=== PATIENT | male | born 1940 | race Asian ===

== ENCOUNTER 2016-03-17 11:48 | Inpatient (IN) | payer MEDICARE, OTHER ==
[~2016-03-17] VITALS: Ht 162.6 cm; Wt 103.1 kg
[~2016-03-17 11:48] MED LIST: ALLO100T PO; AMLO-512 PO; ASA3 PO; ATOR40TA28 PO; CHOL2000 PO; DOXA2TAB2 PO; FINA5TAB41 PO; FISH1CAP10 PO; INSLAN SQ; INSNOV SQ; ISOS60TA4 PO; METO50 PO; MULT1TAB70 PO; WARF2.5 PO
[2016-03-17 12:47] LABS: GLUCOSE,POINT OF CARE 147 MG/DL (70-110)
[2016-03-17] MEDS ORDERED: PANT40TA25 PO (12:48)
[2016-03-17] MEDS ORDERED: APIX2.5T PO (12:52)
[2016-03-17] MEDS ORDERED: COLC0.6T69 PO (12:52)
[2016-03-17 13:41] LABS: HEMATOCRIT 36.3 % (41-53); HEMOGLOBIN 11.9 g/dL (13.5-17.5); MEAN CORPUSCULAR HEMOGLOBIN 29.5 pg (26.0-34.0); MEAN CORPUSCULAR HGB CONC 32.9 G/dL (31.0-37.0); MEAN CORPUSCULAR VOLUME 89 fL (80-100); RED BLOOD CELL COUNT(AUTO) 4.05 MIL/uL (4.50-5.90); RED CELL DISTRIBUTION WIDTH 16.1 % (11.5-14.5); WHITE BLOOD COUNT (AUTO) 7.1 K/uL (4.5-11.0)
[2016-03-17 13:42] LABS: BASOPHILS % (AUTO) 0.8 % (0.0-2.0); EOSINOPHILS % (AUTO) 10.8 % (1.0-6.0); LYMPHOCYTES # (AUTO) 1.6 K/uL (1.0-4.8); LYMPHOCYTES % (AUTO) 22.1 % (22.0-44.0); MONOCYTES # (AUTO) 0.9 K/uL (0.1-1.0); MONOCYTES % (AUTO) 13.4 % (2.0-9.0); NEUTROPHILS # (AUTO) 3.8 K/uL (1.8-7.7); NEUTROPHILS % (AUTO) 52.9 % (40.0-70.0); PLATELET COUNT (AUTO) 153 K/uL (150-450)
[2016-03-17 13:44] LABS: CALCIUM, TOTAL 8.2 mg/dL (8.8-10.5); CREATININE 4.42 mg/dL (0.60-1.30); POTASSIUM 3.9 mmol/L (3.5-5.1)
[2016-03-17 13:58] LABS: ALBUMIN 2.8 g/dL (3.4-5.0); BILIRUBIN,TOTAL 0.5 mg/dL (0.1-1.0); MAGNESIUM 1.5 mg/dL (1.80-2.40); THYROID STIMULATING HORMONE 1.51 uIU/mL (0.36-3.74); TOTAL PROTEIN, SERUM 6.8 g/dL (6.4-8.2)
[2016-03-17] MEDS ORDERED: ONDANSETRON HCL 4 MG/2 ML VIAL IVP PRN (15:15)
[2016-03-17] MEDS ORDERED: 0.9% SODIUM CHLORIDE 10 ML SYRINGE IVP PRN (15:15)
[2016-03-17] MEDS ORDERED: ACETAMINOPHEN 325 MG TABLET PO PRN ×2 (15:15→21:30)
[2016-03-17] MEDS ORDERED: AMLO2.5T PO (15:21)
[2016-03-17] MEDS ORDERED: MORPHINE SULFATE 2 MG/ML SYRINGE IVP ONE (16:45)
[2016-03-17 17:47] VITALS: BP 140/65
[2016-03-17] MEDS ORDERED: INFLUENZA VIRUS VACCINE QVS 2016-17 (3YR+)/PF 60 MCG/0.5 ML SYRINGE IM ONE (18:45)
[2016-03-17 19:15] VITALS: BP 131/62
[2016-03-17] MEDS: COLCHICINE 0.6 MG TABLET PO SCH (20:09)
[2016-03-17] MEDS: TraMADol HCL 50 MG TABLET PO PRN (20:09)
[2016-03-17] MEDS: APIXABAN 2.5 MG TABLET PO SCH (20:09)
[2016-03-17] MEDS ORDERED: MAGNESIUM OXIDE 400 MG TABLET PO ONE (20:45)
[2016-03-17] MEDS ORDERED: METOPROLOL TARTRATE 50 MG TABLET PO SCH (21:00)
[2016-03-17] MEDS ORDERED: ATORVASTATIN CALCIUM 40 MG TABLET PO SCH (21:00)
[2016-03-17] MEDS: INSULIN GLARGINE,HUM.REC.ANLOG 100 UNITS/ML SQ SCH (21:00)
[2016-03-17] MEDS ORDERED: DEXTROSE 50%-WATER 25 GM/50 ML SYRINGE IVP PRN (21:30)
[2016-03-17] MEDS ORDERED: ALBUTEROL SULFATE 2.5 MG/0.5 ML NEB SOLUTION NEB PRN (21:30)
[2016-03-17] MEDS ORDERED: BISACODYL 10 MG RECTAL RECTAL SUPPOSITORY PR PRN (21:30)
[2016-03-17 21:33] VITALS: BP 133/71
[2016-03-17] MEDS: OxyCODONE HCL/ACETAMINOPHEN 5-325 MG TABLET PO PRN (21:34)
[2016-03-17] MEDS: INSULIN ASPART 100 UNITS/ML SQ PRN (21:38)
[2016-03-17 22:57] VITALS: BP 127/54
[2016-03-18] VITALS (7 sets, daily range): BP systolic 123–153; BP diastolic 55–75
[2016-03-18] MEDS ORDERED: MAGNESIUM SULFATE 2 GM in DEXTROSE 5%-WATER 50 ML IV ONE (00:30)
[2016-03-18] MEDS ORDERED: SODIUM CHLORIDE 0.9% 100 ML ONE (00:52)
[2016-03-18] MEDS: PANTOPRAZOLE SODIUM 40 MG DR TABLET PO SCH (06:19)
[2016-03-18] MEDS: INSULIN ASPART 100 UNITS/ML SQ PRN ×4 (06:21→21:08)
[2016-03-18 07:25] LABS: CALCIUM, TOTAL 8.2 mg/dL (8.8-10.5); CREATININE 4.93 mg/dL (0.60-1.30); MAGNESIUM 2.2 mg/dL (1.80-2.40); PHOSPHORUS 4.9 mg/dL (2.5-4.9); POTASSIUM 4.3 mmol/L (3.5-5.1)
[2016-03-18 07:51] LABS: GLUCOSE COMMENT 1 Received Meds; GLUCOSE,POINT OF CARE 180 MG/DL (70-110)
[2016-03-18 07:51] LABS: GLUCOSE COMMENT 1 Received Meds; GLUCOSE,POINT OF CARE 168 MG/DL (70-110)
[2016-03-18] MEDS ORDERED: PANTOPRAZOLE SODIUM 40 MG DR TABLET PO SCH (09:00)
[2016-03-18] MEDS ORDERED: APIXABAN 2.5 MG TABLET PO SCH (09:00)
[2016-03-18 15:01] LABS: GLUCOSE,POINT OF CARE 231 MG/DL (70-110)
[2016-03-18] MEDS: OxyCODONE HCL/ACETAMINOPHEN 5-325 MG TABLET PO PRN (15:21)
[2016-03-18] MEDS: ASPIRIN 325 MG TABLET PO SCH (16:35)
[2016-03-18] MEDS: DOXAZOSIN MESYLATE 2 MG TABLET PO SCH (16:36)
[2016-03-18] MEDS: COLCHICINE 0.6 MG TABLET PO SCH ×2 (16:37→20:58)
[2016-03-18] MEDS: DOCUSATE SODIUM 100 MG CAPSULE PO SCH ×2 (16:37→20:58)
[2016-03-18] MEDS: FISH OIL/OMEGA-3 FATTY ACIDS 500 MG CAPSULE PO SCH (16:38)
[2016-03-18] MEDS: APIXABAN 2.5 MG TABLET PO SCH ×2 (16:38→20:58)
[2016-03-18] MEDS: AmLODIPine BESYLATE 2.5 MG TABLET PO SCH (16:39)
[2016-03-18] MEDS: ISOSORBIDE MONONITRATE 60 MG ER TABLET PO SCH (16:39)
[2016-03-18] MEDS: MULTIVITAMINS, THERAPEUTIC TABLET PO SCH (16:40)
[2016-03-18] MEDS: CHOLECALCIFEROL (VIT D3) 1,000 UNITS TABLET PO SCH (16:40)
[2016-03-18] MEDS: FINASTERIDE 5 MG TABLET PO SCH (16:40)
[2016-03-18] MEDS: HEPARIN SODIUM,PORCINE 5,000 UNITS/ML VIAL SQ SCH ×2 (16:41→20:59)
[2016-03-18] MEDS: METOPROLOL TARTRATE 25 MG TABLET PO SCH ×2 (16:44→20:58)
[2016-03-18] MEDS ORDERED: PREG50 PO (17:20)
[2016-03-18 20:16] LABS: GLUCOSE COMMENT 1 Received Meds; GLUCOSE,POINT OF CARE 174 MG/DL (70-110)
[2016-03-18] MEDS: ATORVASTATIN CALCIUM 20 MG TABLET PO SCH (20:58)
[2016-03-18] MEDS: INSULIN GLARGINE,HUM.REC.ANLOG 100 UNITS/ML SQ SCH (21:15)
[2016-03-19 01:26] LABS: GLUCOSE COMMENT 1 Received Meds; GLUCOSE,POINT OF CARE 215 MG/DL (70-110)
[2016-03-19 02:15] VITALS: BP 149/69
[2016-03-19] MEDS: OxyCODONE HCL/ACETAMINOPHEN 5-325 MG TABLET PO PRN ×4 (02:19→20:56)
[2016-03-19 04:37] VITALS: BP 123/52
[2016-03-19] MEDS: INSULIN ASPART 100 UNITS/ML SQ PRN ×3 (06:31→21:07)
[2016-03-19] MEDS: PANTOPRAZOLE SODIUM 40 MG DR TABLET PO SCH (06:33)
[2016-03-19 07:02] LABS: GLUCOSE COMMENT 1 Received Meds; GLUCOSE,POINT OF CARE 194 MG/DL (70-110)
[2016-03-19 07:35] LABS: BASOPHILS % (AUTO) 0.7 % (0.0-2.0); EOSINOPHILS % (AUTO) 7.2 % (1.0-6.0); HEMOGLOBIN 11.2 g/dL (13.5-17.5); LYMPHOCYTES # (AUTO) 1.1 K/uL (1.0-4.8); LYMPHOCYTES % (AUTO) 17.4 % (22.0-44.0); MEAN CORPUSCULAR HEMOGLOBIN 29.9 pg (26.0-34.0); MEAN CORPUSCULAR HGB CONC 32.9 G/dL (31.0-37.0); MEAN CORPUSCULAR VOLUME 91 fL (80-100); MONOCYTES # (AUTO) 0.7 K/uL (0.1-1.0); MONOCYTES % (AUTO) 11.8 % (2.0-9.0); NEUTROPHILS # (AUTO) 3.9 K/uL (1.8-7.7); NEUTROPHILS % (AUTO) 62.9 % (40.0-70.0); PLATELET COUNT (AUTO) 125 K/uL (150-450); RED BLOOD CELL COUNT(AUTO) 3.73 MIL/uL (4.50-5.90); RED CELL DISTRIBUTION WIDTH 15.8 % (11.5-14.5); WHITE BLOOD COUNT (AUTO) 6.3 K/uL (4.5-11.0)
[2016-03-19 07:58] LABS: CALCIUM, TOTAL 8.7 mg/dL (8.8-10.5); CREATININE 4.92 mg/dL (0.60-1.30); MAGNESIUM 1.8 mg/dL (1.80-2.40); PHOSPHORUS 4.5 mg/dL (2.5-4.9); POTASSIUM 4.9 mmol/L (3.5-5.1)
[2016-03-19 08:04] VITALS: BP 142/54
[2016-03-19] MEDS: ASPIRIN 325 MG TABLET PO SCH (08:06)
[2016-03-19] MEDS: HEPARIN SODIUM,PORCINE 5,000 UNITS/ML VIAL SQ SCH ×2 (08:06→20:57)
[2016-03-19] MEDS: FINASTERIDE 5 MG TABLET PO SCH (08:06)
[2016-03-19] MEDS: CHOLECALCIFEROL (VIT D3) 1,000 UNITS TABLET PO SCH (08:06)
[2016-03-19] MEDS: DOCUSATE SODIUM 100 MG CAPSULE PO SCH ×2 (08:06→20:56)
[2016-03-19] MEDS: METOPROLOL TARTRATE 25 MG TABLET PO SCH ×2 (08:06→20:56)
[2016-03-19] MEDS: ISOSORBIDE MONONITRATE 60 MG ER TABLET PO SCH (08:17)
[2016-03-19] MEDS: APIXABAN 2.5 MG TABLET PO SCH ×2 (08:17→20:56)
[2016-03-19] MEDS: AmLODIPine BESYLATE 2.5 MG TABLET PO SCH (08:17)
[2016-03-19] MEDS: FISH OIL/OMEGA-3 FATTY ACIDS 500 MG CAPSULE PO SCH (08:17)
[2016-03-19] MEDS: COLCHICINE 0.6 MG TABLET PO SCH ×2 (08:17→20:55)
[2016-03-19] MEDS: DOXAZOSIN MESYLATE 2 MG TABLET PO SCH (08:18)
[2016-03-19] MEDS: MULTIVITAMINS, THERAPEUTIC TABLET PO SCH (08:32)
[2016-03-19 11:28] VITALS: BP 123/69
[2016-03-19 15:37] VITALS: BP 107/55
[2016-03-19 18:01] LABS: GLUCOSE COMMENT 1 Received Meds; GLUCOSE,POINT OF CARE 186 MG/DL (70-110)
[2016-03-19 18:41] LABS: GLUCOSE COMMENT 1 Received Meds; GLUCOSE,POINT OF CARE 162 MG/DL (70-110)
[2016-03-19 19:53] VITALS: BP 126/56
[2016-03-19] MEDS: ATORVASTATIN CALCIUM 20 MG TABLET PO SCH (20:56)
[2016-03-19] MEDS: INSULIN GLARGINE,HUM.REC.ANLOG 100 UNITS/ML SQ SCH (21:00)
[2016-03-20] MEDS: OxyCODONE HCL/ACETAMINOPHEN 5-325 MG TABLET PO PRN ×3 (00:07→20:06)
[2016-03-20] MEDS ORDERED: 0.9% SODIUM CHLORIDE 5 ML NEB SOLUTION NEB ONE (00:28)
[2016-03-20 03:45] VITALS: BP_SYST 108; BP_SYST 141; BP_DIAS 64; BP_DIAS 68
[2016-03-20] MEDS: INSULIN ASPART 100 UNITS/ML SQ PRN ×3 (05:25→21:10)
[2016-03-20] MEDS: PANTOPRAZOLE SODIUM 40 MG DR TABLET PO SCH (05:26)
[2016-03-20 06:16] LABS: GLUCOSE COMMENT 1 Received Meds; GLUCOSE,POINT OF CARE 154 MG/DL (70-110)
[2016-03-20 06:28] LABS: BASOPHILS # (AUTO) 0.08 K/uL (0.00-0.20); BASOPHILS % (AUTO) 1.3 % (0.0-2.0); EOSINOPHILS # (AUTO) 0.44 K/uL (0.00-0.70); EOSINOPHILS % (AUTO) 6.96 % (1.0-6.0); HEMOGLOBIN 12.4 g/dL (13.5-17.5); LYMPHOCYTES % (AUTO) 16.1 % (22.0-44.0); MEAN CORPUSCULAR HEMOGLOBIN 29.5 pg (26.0-34.0); MEAN CORPUSCULAR HGB CONC 32.8 G/dL (31.0-37.0); MEAN CORPUSCULAR VOLUME 90 fL (80-100); MONOCYTES # (AUTO) 0.8 K/uL (0.1-1.0); MONOCYTES % (AUTO) 13.1 % (2.0-9.0); NEUTROPHILS # (AUTO) 3.9 K/uL (1.8-7.7); NEUTROPHILS % (AUTO) 62.5 % (40.0-70.0); PLATELET COUNT (AUTO) 127 K/uL (150-450); RED BLOOD CELL COUNT(AUTO) 4.22 MIL/uL (4.50-5.90); RED CELL DISTRIBUTION WIDTH 15.8 % (11.5-14.5); WHITE BLOOD COUNT (AUTO) 6.3 K/uL (4.5-11.0)
[2016-03-20 06:54] LABS: CALCIUM, TOTAL 8.5 mg/dL (8.8-10.5); CREATININE 5.8 mg/dL (0.60-1.30); MAGNESIUM 1.8 mg/dL (1.80-2.40); PHOSPHORUS 4.9 mg/dL (2.5-4.9)
[2016-03-20 07:54] VITALS: BP 146/73
[2016-03-20] MEDS: DOCUSATE SODIUM 100 MG CAPSULE PO SCH ×2 (09:00→20:04)
[2016-03-20 11:36] VITALS: BP 141/74
[2016-03-20] MEDS: APIXABAN 2.5 MG TABLET PO SCH ×2 (13:08→20:04)
[2016-03-20] MEDS: ISOSORBIDE MONONITRATE 60 MG ER TABLET PO SCH (13:08)
[2016-03-20] MEDS: METOPROLOL TARTRATE 25 MG TABLET PO SCH ×2 (13:08→20:04)
[2016-03-20] MEDS: MULTIVITAMINS, THERAPEUTIC TABLET PO SCH (13:08)
[2016-03-20] MEDS: GABAPENTIN 100 MG CAPSULE PO SCH ×2 (13:08→20:05)
[2016-03-20] MEDS: ASPIRIN 325 MG TABLET PO SCH (13:08)
[2016-03-20] MEDS: HEPARIN SODIUM,PORCINE 5,000 UNITS/ML VIAL SQ SCH ×2 (13:09→20:05)
[2016-03-20] MEDS: AmLODIPine BESYLATE 2.5 MG TABLET PO SCH (13:09)
[2016-03-20] MEDS: FINASTERIDE 5 MG TABLET PO SCH (13:09)
[2016-03-20] MEDS: FISH OIL/OMEGA-3 FATTY ACIDS 500 MG CAPSULE PO SCH (13:09)
[2016-03-20] MEDS: DOXAZOSIN MESYLATE 2 MG TABLET PO SCH (13:09)
[2016-03-20] MEDS: CHOLECALCIFEROL (VIT D3) 1,000 UNITS TABLET PO SCH (13:09)
[2016-03-20 13:36] LABS: GLUCOSE,POINT OF CARE 176 MG/DL (70-110)
[2016-03-20 15:46] VITALS: BP 145/72
[2016-03-20 19:44] VITALS: BP 138/60
[2016-03-20] MEDS: ATORVASTATIN CALCIUM 20 MG TABLET PO SCH (20:04)
[2016-03-20 20:11] LABS: GLUCOSE COMMENT 1 Received Meds; GLUCOSE,POINT OF CARE 158 MG/DL (70-110)
[2016-03-20] MEDS: INSULIN GLARGINE,HUM.REC.ANLOG 100 UNITS/ML SQ SCH (21:09)
[2016-03-20 21:31] LABS: GLUCOSE COMMENT 1 Received Meds; GLUCOSE,POINT OF CARE 163 MG/DL (70-110)
[2016-03-20 23:10] VITALS: BP 132/66
[2016-03-21 03:17] VITALS: BP 155/69
[2016-03-21] MEDS: OxyCODONE HCL/ACETAMINOPHEN 5-325 MG TABLET PO PRN ×3 (03:17→23:25)
[2016-03-21 05:40] LABS: GLUCOSE COMMENT 1 Received Meds; GLUCOSE,POINT OF CARE 205 MG/DL (70-110)
[2016-03-21 07:09] VITALS: BP 144/60
[2016-03-21] MEDS: AmLODIPine BESYLATE 2.5 MG TABLET PO SCH (09:00)
[2016-03-21] MEDS: HEPARIN SODIUM,PORCINE 5,000 UNITS/ML VIAL SQ SCH ×2 (09:00→20:59)
[2016-03-21] MEDS: DOCUSATE SODIUM 100 MG CAPSULE PO SCH ×2 (09:00→20:59)
[2016-03-21] MEDS: DOXAZOSIN MESYLATE 2 MG TABLET PO SCH (09:00)
[2016-03-21] MEDS: METOPROLOL TARTRATE 25 MG TABLET PO SCH ×2 (09:00→20:59)
[2016-03-21] MEDS: APIXABAN 2.5 MG TABLET PO SCH ×2 (09:00→21:00)
[2016-03-21 09:41] LABS: GLUCOSE COMMENT 1 Received Meds; GLUCOSE,POINT OF CARE 160 MG/DL (70-110)
[2016-03-21 11:57] LABS: GLUCOSE,POINT OF CARE 173 MG/DL (70-110)
[2016-03-21] MEDS ORDERED: IOHEXOL 180 MG/ML 20 ML VIAL ONE (12:41)
[2016-03-21] MEDS ORDERED: LIDOCAINE HCL/PF 1% 30 ML VIAL ONE (12:43)
[2016-03-21 13:53] VITALS: BP 157/75
[2016-03-21] MEDS: FINASTERIDE 5 MG TABLET PO SCH (14:24)
[2016-03-21] MEDS: CHOLECALCIFEROL (VIT D3) 1,000 UNITS TABLET PO SCH (14:24)
[2016-03-21] MEDS: FISH OIL/OMEGA-3 FATTY ACIDS 500 MG CAPSULE PO SCH (14:24)
[2016-03-21] MEDS: MULTIVITAMINS, THERAPEUTIC TABLET PO SCH (14:24)
[2016-03-21] MEDS: ASPIRIN 325 MG TABLET PO SCH (14:24)
[2016-03-21] MEDS: PANTOPRAZOLE SODIUM 40 MG DR TABLET PO SCH (14:25)
[2016-03-21] MEDS: ISOSORBIDE MONONITRATE 60 MG ER TABLET PO SCH (14:25)
[2016-03-21] MEDS ORDERED: SODIUM CHLORIDE 0.9% 2,000 ML IV ONE (14:34)
[2016-03-21 17:08] LABS: CALCIUM, TOTAL 8.5 mg/dL (8.8-10.5); CREATININE 4.09 mg/dL (0.60-1.30); POTASSIUM 4.7 mmol/L (3.5-5.1)
[2016-03-21] MEDS ORDERED: ALBUMIN HUMAN 25%-12.5GM/50ML IV BOTTLE IV PRN (20:30)
[2016-03-21] MEDS ORDERED: MANNITOL 25%-12.5 GM/50 ML VIAL IVP PRN (20:30)
[2016-03-21 20:50] VITALS: BP 133/80
[2016-03-21] MEDS: GABAPENTIN 100 MG CAPSULE PO SCH (21:00)
[2016-03-21] MEDS: ATORVASTATIN CALCIUM 20 MG TABLET PO SCH (21:00)
[2016-03-21] MEDS: INSULIN GLARGINE,HUM.REC.ANLOG 100 UNITS/ML SQ SCH (21:14)
[2016-03-21] MEDS: INSULIN ASPART 100 UNITS/ML SQ PRN (21:15)
[2016-03-21 21:31] LABS: GLUCOSE COMMENT 1 Received Meds; GLUCOSE,POINT OF CARE 150 MG/DL (70-110)
[2016-03-21 22:59] VITALS: BP 118/62
[2016-03-22 04:10] VITALS: BP 117/53
[2016-03-22 08:37] VITALS: BP 141/79
[2016-03-22] MEDS: FISH OIL/OMEGA-3 FATTY ACIDS 500 MG CAPSULE PO SCH (09:22)
[2016-03-22] MEDS: APIXABAN 2.5 MG TABLET PO SCH (09:23)
[2016-03-22] MEDS: DOXAZOSIN MESYLATE 2 MG TABLET PO SCH (09:23)
[2016-03-22] MEDS: CHOLECALCIFEROL (VIT D3) 1,000 UNITS TABLET PO SCH (09:23)
[2016-03-22] MEDS: MULTIVITAMINS, THERAPEUTIC TABLET PO SCH (09:24)
[2016-03-22] MEDS: DOCUSATE SODIUM 100 MG CAPSULE PO SCH (09:24)
[2016-03-22] MEDS: GABAPENTIN 100 MG CAPSULE PO SCH (09:24)
[2016-03-22] MEDS: FINASTERIDE 5 MG TABLET PO SCH (09:24)
[2016-03-22] MEDS: ASPIRIN 325 MG TABLET PO SCH (09:24)
[2016-03-22] MEDS: HEPARIN SODIUM,PORCINE 5,000 UNITS/ML VIAL SQ SCH (09:25)
[2016-03-22] MEDS: AmLODIPine BESYLATE 2.5 MG TABLET PO SCH (09:25)
[2016-03-22] MEDS: METOPROLOL TARTRATE 25 MG TABLET PO SCH (09:25)
[2016-03-22] MEDS: ISOSORBIDE MONONITRATE 60 MG ER TABLET PO SCH (09:25)
[2016-03-22] MEDS: TraMADol HCL 50 MG TABLET PO PRN (09:30)
[2016-03-22] MEDS: PANTOPRAZOLE SODIUM 40 MG DR TABLET PO SCH (10:15)
[2016-03-22 11:13] VITALS: BP 126/58
[2016-03-22] MEDS: INSULIN ASPART 100 UNITS/ML SQ PRN (12:05)
[2016-03-22 12:11] LABS: GLUCOSE COMMENT 1 Received Meds; GLUCOSE,POINT OF CARE 158 MG/DL (70-110)
[2016-03-22] MEDS ORDERED: DOCU-119 PO (14:49)
[2016-03-22] MEDS ORDERED: LOSA25TA21 PO (14:49)
[2016-03-22] MEDS ORDERED: TRAM50TA4 PO (14:49)
[2016-03-22] MEDS ORDERED: ACET-2247 PO (14:49)
[2016-03-22] MEDS ORDERED: D5050I IVP (14:49)
[2016-03-22] MEDS ORDERED: AUD NEB (14:49)
[2016-03-22] MEDS ORDERED: PERCT PO (14:49)
[2016-03-22] MEDS ORDERED: [UNRECOGNIZED DRUG - CODE] IVP (14:49)
[2016-03-22] MEDS ORDERED: ALBU2550 IV (14:49)
[2016-03-22] MEDS ORDERED: D50SYG IVP (14:49)
[2016-03-22] MEDS ORDERED: PANT40TA25 PO (14:49)
[2016-03-22] MEDS ORDERED: METO25 PO (14:49)
[2016-03-22] MEDS ORDERED: BISA10S PR (14:49)
[2016-03-22] MEDS ORDERED: FOLI0.8T43 PO (14:49)
[2016-03-22] MEDS ORDERED: PREG50 PO (14:49)
[2016-03-22] MEDS ORDERED: INSNOV SQ (14:49)
== END 2016-03-22 14:30 | DRG 555 ==
LOC: EMS 11:49 → 5S 16:08 → 6N 03-19 22:00
PROVIDERS: ADMIT Internal Medicine; ATTEND Internal Medicine
PROC: 5A1D60Z (ICD-10-PCS; principal; 2016-03-18)
DX: M62.81 Muscle weakness (generalized) (principal); N18.6 End stage renal disease; I13.2 Hypertensive heart and chronic kidney disease with heart failure and with stage 5 chronic kidney disease, or end stage renal disease; E44.0 Moderate protein-calorie malnutrition; I50.42 Chronic combined systolic (congestive) and diastolic (congestive) heart failure; I49.5 Sick sinus syndrome; E66.01 Morbid (severe) obesity due to excess calories; I25.5 Ischemic cardiomyopathy; E11.22 Type 2 diabetes mellitus with diabetic chronic kidney disease; E11.21 Type 2 diabetes mellitus with diabetic nephropathy; E11.40 Type 2 diabetes mellitus with diabetic neuropathy, unspecified; N40.0 Benign prostatic hyperplasia without lower urinary tract symptoms; I48.0 Paroxysmal atrial fibrillation; I25.10 Atherosclerotic heart disease of native coronary artery without angina pectoris; E78.5 Hyperlipidemia, unspecified; D63.1 Anemia in chronic kidney disease; M48.06 Spinal stenosis, lumbar region; M48.07 Spinal stenosis, lumbosacral region; Z28.21 Immunization not carried out because of patient refusal; Z95.810 Presence of automatic (implantable) cardiac defibrillator; Z68.39 Body mass index [BMI] 39.0-39.9, adult; Z79.4 Long term (current) use of insulin; Z99.2 Dependence on renal dialysis; Z95.1 Presence of aortocoronary bypass graft; Z79.01 Long term (current) use of anticoagulants; Z79.899 Other long term (current) drug therapy; Z79.82 Long term (current) use of aspirin; Z90.5 Acquired absence of kidney; Z83.3 Family history of diabetes mellitus; Z82.49 Family history of ischemic heart disease and other diseases of the circulatory system
CPT/HCPCS: 70450; 72100; 72132; 72265; 82607; 82746; 82962; 83735; 84100; 84443; 84550; 87081; 87340; 90471; 90935; 93005; 94640; 96374; 97163; 97167; 97530; 99285; J1644; J1815; J2270; J3475; J3490; J7030; J7050; J7060; Q9965

== ENCOUNTER 2016-03-22 14:37 | Inpatient (IN) | payer MEDICARE, OTHER ==
[~2016-03-22] VITALS: Ht 162.6 cm; Wt 83.0 kg
[~2016-03-22 14:37] MED LIST changes: -ALLO100T PO; -AMLO-512 PO; +AMLO2.5T PO; +APIX2.5T PO; +COLC0.6T69 PO; +PANT40TA25 PO; +PREG50 PO; -WARF2.5 PO
[2016-03-22] MEDS ORDERED: PERCT PO (14:49)
[2016-03-22] MEDS ORDERED: DOCU-119 PO (14:49)
[2016-03-22] MEDS ORDERED: PREG50 PO (14:49)
[2016-03-22] MEDS ORDERED: BISA10S PR (14:49)
[2016-03-22] MEDS ORDERED: ALBU2550 IV (14:49)
[2016-03-22] MEDS ORDERED: TRAM50TA4 PO (14:49)
[2016-03-22] MEDS ORDERED: D50SYG IVP (14:49)
[2016-03-22] MEDS ORDERED: LOSA25TA21 PO (14:49)
[2016-03-22] MEDS ORDERED: METO25 PO (14:49)
[2016-03-22] MEDS ORDERED: D5050I IVP (14:49)
[2016-03-22] MEDS ORDERED: INSNOV SQ (14:49)
[2016-03-22] MEDS ORDERED: FOLI0.8T43 PO (14:49)
[2016-03-22] MEDS ORDERED: [UNRECOGNIZED DRUG - CODE] IVP (14:49)
[2016-03-22] MEDS ORDERED: PANT40TA25 PO (14:49)
[2016-03-22] MEDS ORDERED: AUD NEB (14:49)
[2016-03-22] MEDS ORDERED: ACET-2247 PO (14:49)
[2016-03-22 17:00] VITALS: BP 119/58
[2016-03-22] MEDS ORDERED: ACETAMINOPHEN 325 MG TABLET PO PRN (17:00)
[2016-03-22] MEDS ORDERED: TraMADol HCL 50 MG TABLET PO PRN (17:00)
[2016-03-22] MEDS ORDERED: TEMAZEPAM 15 MG CAPSULE PO PRN (17:00)
[2016-03-22] MEDS ORDERED: DOCUSATE SODIUM 283 MG/5 ML MINI-ENEMA PR PRN (17:00)
[2016-03-22] MEDS ORDERED: DEXTROSE 50%-WATER 25 GM/50 ML SYRINGE IVP PRN (17:00)
[2016-03-22] MEDS: LOSARTAN POTASSIUM 25 MG TABLET PO SCH (20:58)
[2016-03-22] MEDS: ATORVASTATIN CALCIUM 20 MG TABLET PO SCH (20:58)
[2016-03-22] MEDS: DOCUSATE SODIUM 100 MG CAPSULE PO SCH (20:58)
[2016-03-22] MEDS: PREGABALIN 50 MG CAPSULE PO SCH (20:58)
[2016-03-22] MEDS: METOPROLOL TARTRATE 25 MG TABLET PO SCH (20:58)
[2016-03-22] MEDS: SENNA 187 MG TABLET PO SCH (20:58)
[2016-03-22] MEDS: APIXABAN 2.5 MG TABLET PO SCH (20:59)
[2016-03-22 21:00] VITALS: BP 129/66
[2016-03-22] MEDS ORDERED: HEPARIN SODIUM,PORCINE 5,000 UNITS/ML VIAL SQ SCH (21:00)
[2016-03-22] MEDS: INSULIN GLARGINE,HUM.REC.ANLOG 100 UNITS/ML SQ SCH ×2 (21:00→22:36)
[2016-03-22] MEDS ORDERED: GABAPENTIN 100 MG CAPSULE PO SCH (21:00)
[2016-03-22 21:20] LABS: GLUCOSE,POINT OF CARE 154 MG/DL (70-110)
[2016-03-22 21:20] LABS: GLUCOSE COMMENT 1 Received Meds; GLUCOSE,POINT OF CARE 146 MG/DL (70-110)
[2016-03-22] MEDS ORDERED: ALBUMIN HUMAN 25%-12.5GM/50ML 50 ML IV PRN (21:30)
[2016-03-22] MEDS ORDERED: ALBUTEROL SULFATE 2.5 MG/0.5 ML NEB SOLUTION NEB PRN (21:30)
[2016-03-22 22:05] LABS: APPEARANCE,URINE TURBID (CLEAR); GLUCOSE, URINE (UA) 100 mg/dL (NEGATIVE); KETONES,URINE NEGATIVE (NEGATIVE); LEUKOCYTE ESTERASE ,URINE NEGATIVE (NEGATIVE); PH,URINE 5.5 (5.0-8.0); PROTEIN,URINE SEE CONFIRM (NEGATIVE)
[2016-03-22 22:18] LABS: OCCULT BLOOD,URINE TRACE (NEGATIVE)
[2016-03-22 22:19] LABS: AMORPHOUS SEDIMENT,UR Few /LPF (None Seen); SQUAMOUS EPITHELIAL CELL,UR Rare /LPF (None Seen); SULFOSALICYLIC ACID,URINE 4+ (Negative)
[2016-03-22 23:11] VITALS: BP 116/56
[2016-03-23 05:42] LABS: GLUCOSE,POINT OF CARE 167 MG/DL (70-110)
[2016-03-23 07:00] LABS: HEMOGLOBIN 9.8 g/dL (13.5-17.5); MEAN CORPUSCULAR HEMOGLOBIN 29.7 pg (26.0-34.0); MEAN CORPUSCULAR HGB CONC 32.8 G/dL (31.0-37.0); MEAN CORPUSCULAR VOLUME 91 fL (80-100); PLATELET COUNT (AUTO) 125 K/uL (150-450); RED BLOOD CELL COUNT(AUTO) 3.31 MIL/uL (4.50-5.90); RED CELL DISTRIBUTION WIDTH 16.7 % (11.5-14.5); WHITE BLOOD COUNT (AUTO) 4.6 K/uL (4.5-11.0)
[2016-03-23 07:34] VITALS: BP 133/64
[2016-03-23] MEDS: DOXAZOSIN MESYLATE 2 MG TABLET PO SCH (08:09)
[2016-03-23] MEDS: PANTOPRAZOLE SODIUM 40 MG DR TABLET PO SCH (08:09)
[2016-03-23] MEDS: PREGABALIN 50 MG CAPSULE PO SCH ×2 (08:09→20:31)
[2016-03-23] MEDS: FINASTERIDE 5 MG TABLET PO SCH (08:09)
[2016-03-23] MEDS: CHOLECALCIFEROL (VIT D3) 2,000 UNITS TABLET PO SCH (08:09)
[2016-03-23] MEDS: ASPIRIN 325 MG TABLET PO SCH (08:09)
[2016-03-23] MEDS: APIXABAN 2.5 MG TABLET PO SCH ×2 (08:09→20:30)
[2016-03-23] MEDS: ISOSORBIDE MONONITRATE 60 MG ER TABLET PO SCH (08:09)
[2016-03-23] MEDS: LOSARTAN POTASSIUM 25 MG TABLET PO SCH ×2 (08:09→20:31)
[2016-03-23] MEDS: DOCUSATE SODIUM 100 MG CAPSULE PO SCH ×2 (08:09→20:31)
[2016-03-23] MEDS: VITAMIN B COMP/VIT C/FOLIC ACID CAPSULE PO SCH (08:09)
[2016-03-23] MEDS: METOPROLOL TARTRATE 25 MG TABLET PO SCH ×2 (08:10→20:29)
[2016-03-23 08:51] LABS: EOSINOPHILS % (MANUAL) 1 % (1-6); LYMPHOCYTES % (MANUAL) 26 % (22-44); TOTAL CELLS COUNTED 100
[2016-03-23 08:55] LABS: ALANINE AMINOTRANSFERASE 166 U/L (12-78); ALBUMIN 2.1 g/dL (3.4-5.0); ANION GAP 11 mmol/L (8-16); ASPARTATE AMINOTRANSFERASE 155 U/L (15-37); BILIRUBIN,TOTAL 0.6 mg/dL (0.1-1.0); CALCIUM, TOTAL 8.6 mg/dL (8.8-10.5); CARBON DIOXIDE 26 mmol/L (22-29); CHLORIDE 97 mmol/L (98-107); CREATINE KINASE MB 2.2 ng/mL (0-5); CREATINE KINASE, TOTAL 702 U/L (39-308); CREATININE 5.06 mg/dL (0.60-1.30); GLOMERULAR FILTR. RATE CALC 11 mL/min (>60); POTASSIUM 4.6 mmol/L (3.5-5.1); SODIUM SERUM 134 mmol/L (136-145); TOTAL PROTEIN, SERUM 6.6 g/dL (6.4-8.2); UREA NITROGEN, BLOOD 70 mg/dL (7-18)
[2016-03-23] MEDS ORDERED: FISH OIL/OMEGA-3 FATTY ACIDS 500 MG CAPSULE PO SCH (09:00)
[2016-03-23 09:11] LABS: ERYTHROCYTE SEDIMENTATION RATE 120 MM/HR (0-15)
[2016-03-23] MEDS: INSULIN ASPART 100 UNITS/ML SQ PRN (09:24)
[2016-03-23 09:57] LABS: URIC ACID 8.9 mg/dL (2.6-7.2)
[2016-03-23 12:37] LABS: GLUCOSE,POINT OF CARE 132 MG/DL (70-110)
[2016-03-23] MEDS ORDERED: SODIUM CHLORIDE 0.9% 2,000 ML IV ONE (13:36)
[2016-03-23] MEDS ORDERED: MANNITOL 25%-12.5 GM/50 ML VIAL IVP PRN (14:45)
[2016-03-23] MEDS ORDERED: ALBUMIN HUMAN 25%-12.5GM/50ML IV BOTTLE IV PRN (14:45)
[2016-03-23 17:26] LABS: MAGNESIUM 1.8 mg/dL (1.80-2.40); PHOSPHORUS 3.3 mg/dL (2.5-4.9)
[2016-03-23 17:45] VITALS: BP 127/52
[2016-03-23 18:01] LABS: GLUCOSE,POINT OF CARE 129 MG/DL (70-110)
[2016-03-23 20:26] VITALS: BP 115/59
[2016-03-23] MEDS: ATORVASTATIN CALCIUM 20 MG TABLET PO SCH (20:28)
[2016-03-23] MEDS: SENNA 187 MG TABLET PO SCH (20:30)
[2016-03-23] MEDS: INSULIN GLARGINE,HUM.REC.ANLOG 100 UNITS/ML SQ SCH (20:32)
[2016-03-23 21:22] LABS: GLUCOSE,POINT OF CARE 199 MG/DL (70-110)
[2016-03-23] MEDS ORDERED: GuaiFENesin/D-METHORPHAN [SUGAR-FREE] 200-20MG/10 ML SYRUP UDCUP PO PRN (22:30)
[2016-03-23 23:22] VITALS: BP 106/57
[2016-03-24 05:51] LABS: GLUCOSE,POINT OF CARE 154 MG/DL (70-110)
[2016-03-24 07:19] VITALS: BP 123/55
[2016-03-24] MEDS: PREGABALIN 50 MG CAPSULE PO SCH ×2 (09:00→21:00)
[2016-03-24] MEDS: DOCUSATE SODIUM 100 MG CAPSULE PO SCH ×2 (09:00→21:14)
[2016-03-24] MEDS ORDERED: EPOETIN ALFA 10,000 UNITS/ML 2 ML VIAL SQ SCH (09:00)
[2016-03-24] MEDS: APIXABAN 2.5 MG TABLET PO SCH ×2 (09:00→21:14)
[2016-03-24] MEDS: METOPROLOL TARTRATE 25 MG TABLET PO SCH ×2 (09:00→21:14)
[2016-03-24] MEDS: LOSARTAN POTASSIUM 25 MG TABLET PO SCH ×2 (09:00→21:00)
[2016-03-24 12:07] LABS: GLUCOSE,POINT OF CARE 164 MG/DL (70-110)
[2016-03-24] MEDS: ASPIRIN 325 MG TABLET PO SCH (13:07)
[2016-03-24] MEDS: VITAMIN B COMP/VIT C/FOLIC ACID CAPSULE PO SCH (13:09)
[2016-03-24] MEDS: DOXAZOSIN MESYLATE 2 MG TABLET PO SCH (13:09)
[2016-03-24 13:10] VITALS: BP 152/75
[2016-03-24] MEDS: CHOLECALCIFEROL (VIT D3) 2,000 UNITS TABLET PO SCH (13:10)
[2016-03-24] MEDS: OxyCODONE HCL/ACETAMINOPHEN 5-325 MG TABLET PO PRN (13:10)
[2016-03-24] MEDS: ISOSORBIDE MONONITRATE 60 MG ER TABLET PO SCH (13:10)
[2016-03-24] MEDS: FINASTERIDE 5 MG TABLET PO SCH (13:10)
[2016-03-24] MEDS: PANTOPRAZOLE SODIUM 40 MG DR TABLET PO SCH (13:10)
[2016-03-24 15:43] VITALS: BP 142/70
[2016-03-24] MEDS: 0.9% SODIUM CHLORIDE 10 ML SYRINGE IVP SCH (16:12)
[2016-03-24] MEDS ORDERED: 0.9% SODIUM CHLORIDE 10 ML SYRINGE IVP PRN (17:00)
[2016-03-24] MEDS: INSULIN ASPART 100 UNITS/ML SQ PRN (18:08)
[2016-03-24 19:41] LABS: GLUCOSE COMMENT 1 Received Meds; GLUCOSE,POINT OF CARE 171 MG/DL (70-110)
[2016-03-24] MEDS ORDERED: DICLOFENAC SODIUM 1% 100 GM GEL [4GM] TP PRN (21:00)
[2016-03-24] MEDS: INSULIN GLARGINE,HUM.REC.ANLOG 100 UNITS/ML SQ SCH (21:00)
[2016-03-24] MEDS ORDERED: PREGABALIN 75 MG CAPSULE PO SCH (21:00)
[2016-03-24 21:08] VITALS: BP 108/75
[2016-03-24] MEDS: ATORVASTATIN CALCIUM 20 MG TABLET PO SCH (21:14)
[2016-03-24] MEDS: SENNA 187 MG TABLET PO SCH (21:14)
[2016-03-24 22:47] LABS: GLUCOSE COMMENT 1 Received Meds; GLUCOSE,POINT OF CARE 142 MG/DL (70-110)
[2016-03-25] MEDS: 0.9% SODIUM CHLORIDE 10 ML SYRINGE IVP SCH ×2 (00:02→08:37)
[2016-03-25 00:30] VITALS: BP 125/60
[2016-03-25 06:17] LABS: GLUCOSE,POINT OF CARE 177 MG/DL (70-110)
[2016-03-25 07:16] VITALS: BP 121/63
[2016-03-25 07:33] LABS: PROTHROMBIN TIME 10.7 SEC (9.4-11.6)
[2016-03-25 07:34] LABS: CALCIUM, TOTAL 8.4 mg/dL (8.8-10.5); CREATININE 5.21 mg/dL (0.60-1.30); MAGNESIUM 2.2 mg/dL (1.80-2.40); PHOSPHORUS 6.2 mg/dL (2.5-4.9); POTASSIUM 4.9 mmol/L (3.5-5.1)
[2016-03-25 07:38] LABS: HEMATOCRIT 31.1 % (41-53); HEMOGLOBIN 10.1 g/dL (13.5-17.5); MEAN CORPUSCULAR HEMOGLOBIN 29.3 pg (26.0-34.0); MEAN CORPUSCULAR HGB CONC 32.6 G/dL (31.0-37.0); MEAN CORPUSCULAR VOLUME 90 fL (80-100); PLATELET COUNT (AUTO) 190 K/uL (150-450); RED BLOOD CELL COUNT(AUTO) 3.46 MIL/uL (4.50-5.90); WHITE BLOOD COUNT (AUTO) 4.9 K/uL (4.5-11.0)
[2016-03-25] MEDS: OxyCODONE HCL/ACETAMINOPHEN 5-325 MG TABLET PO PRN (08:36)
[2016-03-25 09:54] LABS: BAND NEUTROPHILS % (MANUAL) 2 % (1-5); EOSINOPHILS % (MANUAL) 4 % (1-6); LYMPHOCYTES % (MANUAL) 21 % (22-44); TOTAL CELLS COUNTED 100
[2016-03-25] MEDS ORDERED: IOHEXOL 180 MG/ML 20 ML VIAL ONE ×2 (10:56→11:57)
[2016-03-25] MEDS ORDERED: CALCIUM ACETATE 667 MG CAPSULE PO SCH (12:30)
[2016-03-25 13:08] LABS: GLUCOSE, CSF 86 mg/dL (50-80); TOTAL PROTEIN, CSF 41 mg/dL (15-45)
[2016-03-25 13:38] LABS: APPEARANCE,CSF CLEAR (CLEAR); COLOR,CSF COLORLESS (COLORLESS)
== END 2016-03-25 13:06 | disposition short-term general hospital (02) | DRG 947 ==
LOC: 2WR 14:37
PROVIDERS: ADMIT Physical Medicine & Rehabilitation; ATTEND Physical Medicine & Rehabilitation
PROC: 5A1D00Z (ICD-10-PCS; 2016-03-23)
PROC: 009U3ZX Drainage of Spinal Canal, Percutaneous Approach, Diagnostic (ICD-10-PCS; principal; 2016-03-25)
PROC: B01B1ZZ Fluoroscopy of Spinal Cord using Low Osmolar Contrast (ICD-10-PCS; 2016-03-25)
DX: R53.1 Weakness (principal); N18.6 End stage renal disease; E44.0 Moderate protein-calorie malnutrition; E87.1 Hypo-osmolality and hyponatremia; I12.0 Hypertensive chronic kidney disease with stage 5 chronic kidney disease or end stage renal disease; I25.10 Atherosclerotic heart disease of native coronary artery without angina pectoris; E11.40 Type 2 diabetes mellitus with diabetic neuropathy, unspecified; E11.22 Type 2 diabetes mellitus with diabetic chronic kidney disease; M48.06 Spinal stenosis, lumbar region; M48.07 Spinal stenosis, lumbosacral region; E66.01 Morbid (severe) obesity due to excess calories; F29 Unspecified psychosis not due to a substance or known physiological condition; I49.5 Sick sinus syndrome; E11.36 Type 2 diabetes mellitus with diabetic cataract; E11.9 Type 2 diabetes mellitus without complications; D63.8 Anemia in other chronic diseases classified elsewhere; M10.9 Gout, unspecified; I25.5 Ischemic cardiomyopathy; E78.5 Hyperlipidemia, unspecified; R79.89 Other specified abnormal findings of blood chemistry; Z68.31 Body mass index [BMI] 31.0-31.9, adult; Z99.2 Dependence on renal dialysis; Z79.4 Long term (current) use of insulin; Z95.1 Presence of aortocoronary bypass graft; Z90.5 Acquired absence of kidney; Z79.899 Other long term (current) drug therapy; Z79.891 Long term (current) use of opiate analgesic; Z95.810 Presence of automatic (implantable) cardiac defibrillator
CPT/HCPCS: 72126; 72240; 76700; 82945; 82962; 83735; 84100; 84157; 84550; 85651; 87081; 89051; 90935; 97110; 97140; 97163; 97167; 97530; 97535; J0885; J1644; J1815; J7030; Q9965

== ENCOUNTER 2016-03-25 13:15 | Inpatient (IN) | payer MEDICARE, OTHER ==
[~2016-03-25] VITALS: Ht 162.6 cm; Wt 79.2 kg
[2016-03-25 13:15] VITALS: BP 134/73
[~2016-03-25 13:15] MED LIST changes: +ACET-2247 PO; +ALBU2550 IV; -AMLO2.5T PO; +AUD NEB; +BISA10S PR; -COLC0.6T69 PO; +D5050I IVP; +DOCU-119 PO; -FISH1CAP10 PO; +FOLI0.8T43 PO; +LOSA25TA21 PO; +METO25 PO; -METO50 PO; -MULT1TAB70 PO; +PERCT PO; +TRAM50TA4 PO; +[UNRECOGNIZED DRUG - CODE] IVP
[2016-03-25] MEDS ORDERED: ALBUMIN HUMAN 25%-12.5GM/50ML 50 ML IV PRN (15:15)
[2016-03-25] MEDS ORDERED: DOCUSATE SODIUM 283 MG/5 ML MINI-ENEMA PR PRN (15:15)
[2016-03-25] MEDS ORDERED: ACETAMINOPHEN 325 MG TABLET PO PRN (15:15)
[2016-03-25] MEDS ORDERED: OxyCODONE HCL/ACETAMINOPHEN 5-325 MG TABLET PO PRN (15:15)
[2016-03-25] MEDS ORDERED: INSULIN ASPART 100 UNITS/ML SQ PRN (15:15)
[2016-03-25] MEDS ORDERED: TraMADol HCL 50 MG TABLET PO PRN ×2 (15:15→16:00)
[2016-03-25] MEDS ORDERED: DEXTROSE 50%-WATER 25 GM/50 ML VIAL IV PRN (15:15)
[2016-03-25] MEDS ORDERED: DICLOFENAC SODIUM 1% 100 GM GEL [4GM] TP PRN (15:15)
[2016-03-25] MEDS: 0.9% SODIUM CHLORIDE 10 ML SYRINGE IVP SCH (16:00)
[2016-03-25] MEDS ORDERED: DEXTROSE 50%-WATER 25 GM/50 ML SYRINGE IVP PRN (16:00)
[2016-03-25 17:40] VITALS: BP 149/79
[2016-03-25] MEDS: DOXAZOSIN MESYLATE 2 MG TABLET PO SCH (18:23)
[2016-03-25] MEDS: FINASTERIDE 5 MG TABLET PO SCH (18:23)
[2016-03-25] MEDS: CHOLECALCIFEROL (VIT D3) 1,000 UNITS TABLET PO SCH (18:23)
[2016-03-25] MEDS: VITAMIN B COMP/VIT C/FOLIC ACID CAPSULE PO SCH (18:24)
[2016-03-25 19:24] VITALS: BP 146/68
[2016-03-25] MEDS: PREGABALIN 75 MG CAPSULE PO SCH ×2 (21:00→22:11)
[2016-03-25] MEDS: INSULIN GLARGINE,HUM.REC.ANLOG 100 UNITS/ML SQ SCH (21:00)
[2016-03-25] MEDS: ISOSORBIDE MONONITRATE 60 MG ER TABLET PO SCH (22:11)
[2016-03-25] MEDS: ATORVASTATIN CALCIUM 40 MG TABLET PO SCH (22:11)
[2016-03-25] MEDS: DOCUSATE SODIUM 100 MG CAPSULE PO SCH (22:11)
[2016-03-25] MEDS: APIXABAN 2.5 MG TABLET PO SCH (22:11)
[2016-03-25] MEDS: METOPROLOL TARTRATE 25 MG TABLET PO SCH (22:11)
[2016-03-25] MEDS: CALCIUM ACETATE 667 MG CAPSULE PO SCH (22:11)
[2016-03-25] MEDS ORDERED: SODIUM CHLORIDE 0.9% 500 ML IV ONE (22:55)
[2016-03-25] MEDS: CONTAINER EMPTY IV SCH (23:02)
[2016-03-25] MEDS: IMMUNE GLOBULIN GAMMA IV SCH (23:02)
[2016-03-25] MEDS: LOSARTAN POTASSIUM 25 MG TABLET PO SCH (23:13)
[2016-03-25] MEDS: SENNA 187 MG TABLET PO SCH (23:13)
[2016-03-25 23:14] VITALS: BP 131/54
[2016-03-26 04:17] VITALS: BP 102/53
[2016-03-26] MEDS: PANTOPRAZOLE SODIUM 40 MG DR TABLET PO SCH (06:32)
[2016-03-26 07:24] LABS: BASOPHILS # (AUTO) 0.05 K/uL (0.00-0.20); BASOPHILS % (AUTO) 1.1 % (0.0-2.0); EOSINOPHILS # (AUTO) 0.39 K/uL (0.00-0.70); EOSINOPHILS % (AUTO) 8.05 % (1.0-6.0); HEMATOCRIT 31.3 % (41-53); HEMOGLOBIN 10.4 g/dL (13.5-17.5); LYMPHOCYTES # (AUTO) 0.8 K/uL (1.0-4.8); LYMPHOCYTES % (AUTO) 15.3 % (22.0-44.0); MEAN CORPUSCULAR HEMOGLOBIN 29.5 pg (26.0-34.0); MEAN CORPUSCULAR HGB CONC 33.3 G/dL (31.0-37.0); MEAN CORPUSCULAR VOLUME 89 fL (80-100); MONOCYTES # (AUTO) 0.9 K/uL (0.1-1.0); MONOCYTES % (AUTO) 18.7 % (2.0-9.0); NEUTROPHILS # (AUTO) 2.8 K/uL (1.8-7.7); NEUTROPHILS % (AUTO) 56.9 % (40.0-70.0); PLATELET COUNT (AUTO) 249 K/uL (150-450); RED BLOOD CELL COUNT(AUTO) 3.53 MIL/uL (4.50-5.90); RED CELL DISTRIBUTION WIDTH 16.2 % (11.5-14.5); WHITE BLOOD COUNT (AUTO) 4.9 K/uL (4.5-11.0)
[2016-03-26 07:48] LABS: HEMOGLOBIN A1C 7.2 % (4.5-6.2)
[2016-03-26 07:50] VITALS: BP 112/71
[2016-03-26] MEDS: 0.9% SODIUM CHLORIDE 10 ML SYRINGE IVP SCH ×3 (07:56→23:50)
[2016-03-26 08:16] LABS: CHOL/HDL RATIO 4.9 (4.2-7.3); CREATINE KINASE MB 6.9 ng/mL (0-5); CREATININE 3.6 mg/dL (0.60-1.30); POTASSIUM 4.6 mmol/L (3.5-5.1); THYROID STIMULATING HORMONE 1.62 uIU/mL (0.36-3.74)
[2016-03-26 08:22] LABS: ERYTHROCYTE SEDIMENTATION RATE 110 MM/HR (0-15)
[2016-03-26] MEDS: METOPROLOL TARTRATE 25 MG TABLET PO SCH ×2 (08:40→21:54)
[2016-03-26] MEDS: DOCUSATE SODIUM 100 MG CAPSULE PO SCH ×2 (08:40→21:53)
[2016-03-26] MEDS: FINASTERIDE 5 MG TABLET PO SCH (08:40)
[2016-03-26] MEDS: LOSARTAN POTASSIUM 25 MG TABLET PO SCH (08:40)
[2016-03-26] MEDS: CALCIUM ACETATE 667 MG CAPSULE PO SCH ×3 (08:40→17:23)
[2016-03-26] MEDS: VITAMIN B COMP/VIT C/FOLIC ACID CAPSULE PO SCH (08:40)
[2016-03-26] MEDS: ASPIRIN 325 MG TABLET PO SCH (08:41)
[2016-03-26] MEDS: PREGABALIN 75 MG CAPSULE PO SCH ×3 (08:41→21:55)
[2016-03-26] MEDS: DOXAZOSIN MESYLATE 2 MG TABLET PO SCH (08:41)
[2016-03-26] MEDS: CHOLECALCIFEROL (VIT D3) 1,000 UNITS TABLET PO SCH (08:41)
[2016-03-26] MEDS: APIXABAN 2.5 MG TABLET PO SCH ×2 (08:41→21:54)
[2016-03-26] MEDS: OxyCODONE HCL/ACETAMINOPHEN 5-325 MG TABLET PO PRN (08:41)
[2016-03-26] MEDS: ISOSORBIDE MONONITRATE 60 MG ER TABLET PO SCH (08:41)
[2016-03-26 10:59] VITALS: BP 129/63
[2016-03-26] MEDS: INSULIN ASPART 100 UNITS/ML SQ PRN ×3 (11:35→21:59)
[2016-03-26 12:02] LABS: GLUCOSE,POINT OF CARE 138 MG/DL (70-110)
[2016-03-26 12:07] LABS: GLUCOSE COMMENT 1 Received Meds; GLUCOSE,POINT OF CARE 187 MG/DL (70-110)
[2016-03-26 15:30] VITALS: BP 118/72
[2016-03-26 17:51] LABS: GLUCOSE COMMENT 1 Received Meds; GLUCOSE,POINT OF CARE 149 MG/DL (70-110)
[2016-03-26 19:52] VITALS: BP 122/73
[2016-03-26] MEDS: INSULIN GLARGINE,HUM.REC.ANLOG 100 UNITS/ML SQ SCH (21:00)
[2016-03-26] MEDS: ATORVASTATIN CALCIUM 40 MG TABLET PO SCH (21:53)
[2016-03-26] MEDS: SENNA 187 MG TABLET PO SCH (21:55)
[2016-03-26] MEDS: CONTAINER EMPTY IV SCH (22:11)
[2016-03-26] MEDS: IMMUNE GLOBULIN GAMMA IV SCH (22:11)
[2016-03-27] VITALS (7 sets, daily range): BP systolic 114–138; BP diastolic 54–89
[2016-03-27] MEDS: PANTOPRAZOLE SODIUM 40 MG DR TABLET PO SCH (06:00)
[2016-03-27] MEDS: INSULIN ASPART 100 UNITS/ML SQ PRN ×4 (06:05→21:18)
[2016-03-27 07:12] LABS: BASOPHILS # (AUTO) 0.06 K/uL (0.00-0.20); BASOPHILS % (AUTO) 1.1 % (0.0-2.0); EOSINOPHILS # (AUTO) 0.64 K/uL (0.00-0.70); EOSINOPHILS % (AUTO) 11.12 % (1.0-6.0); HEMATOCRIT 31.7 % (41-53); HEMOGLOBIN 10.5 g/dL (13.5-17.5); LYMPHOCYTES # (AUTO) 0.9 K/uL (1.0-4.8); LYMPHOCYTES % (AUTO) 15.6 % (22.0-44.0); MEAN CORPUSCULAR HEMOGLOBIN 29.5 pg (26.0-34.0); MEAN CORPUSCULAR HGB CONC 33.1 G/dL (31.0-37.0); MEAN CORPUSCULAR VOLUME 89 fL (80-100); MONOCYTES # (AUTO) 1.1 K/uL (0.1-1.0); MONOCYTES % (AUTO) 18.4 % (2.0-9.0); NEUTROPHILS # (AUTO) 3.1 K/uL (1.8-7.7); NEUTROPHILS % (AUTO) 53.8 % (40.0-70.0); PLATELET COUNT (AUTO) 271 K/uL (150-450); RED BLOOD CELL COUNT(AUTO) 3.55 MIL/uL (4.50-5.90); RED CELL DISTRIBUTION WIDTH 15.6 % (11.5-14.5); WHITE BLOOD COUNT (AUTO) 5.8 K/uL (4.5-11.0)
[2016-03-27 07:24] LABS: CALCIUM, TOTAL 8.9 mg/dL (8.8-10.5); CREATININE 4.54 mg/dL (0.60-1.30); POTASSIUM 4.6 mmol/L (3.5-5.1)
[2016-03-27] MEDS: VITAMIN B COMP/VIT C/FOLIC ACID CAPSULE PO SCH (08:07)
[2016-03-27] MEDS: CALCIUM ACETATE 667 MG CAPSULE PO SCH ×3 (08:07→17:24)
[2016-03-27] MEDS: CHOLECALCIFEROL (VIT D3) 1,000 UNITS TABLET PO SCH (08:07)
[2016-03-27] MEDS: ASPIRIN 325 MG TABLET PO SCH (08:07)
[2016-03-27] MEDS: FINASTERIDE 5 MG TABLET PO SCH (08:07)
[2016-03-27] MEDS: DOCUSATE SODIUM 100 MG CAPSULE PO SCH ×3 (08:07→21:16)
[2016-03-27] MEDS: METOPROLOL TARTRATE 25 MG TABLET PO SCH ×2 (08:07→21:16)
[2016-03-27] MEDS: PREGABALIN 75 MG CAPSULE PO SCH ×3 (08:08→21:16)
[2016-03-27] MEDS: ISOSORBIDE MONONITRATE 60 MG ER TABLET PO SCH (08:08)
[2016-03-27] MEDS: EPOETIN ALFA 10,000 UNITS/ML 2 ML VIAL SQ SCH (08:08)
[2016-03-27] MEDS: LOSARTAN POTASSIUM 25 MG TABLET PO SCH (08:08)
[2016-03-27] MEDS: APIXABAN 2.5 MG TABLET PO SCH ×2 (08:08→21:16)
[2016-03-27] MEDS: 0.9% SODIUM CHLORIDE 10 ML SYRINGE IVP SCH ×3 (08:09→23:16)
[2016-03-27] MEDS: DOXAZOSIN MESYLATE 2 MG TABLET PO SCH (08:09)
[2016-03-27] MEDS ORDERED: LACTULOSE 20 GM/30 ML SOLUTION UDCUP PO ONE (10:15)
[2016-03-27 15:26] LABS: GLUCOSE COMMENT 1 Received Meds; GLUCOSE,POINT OF CARE 167 MG/DL (70-110)
[2016-03-27 19:47] LABS: GLUCOSE COMMENT 1 Received Meds; GLUCOSE,POINT OF CARE 155 MG/DL (70-110)
[2016-03-27] MEDS: INSULIN GLARGINE,HUM.REC.ANLOG 100 UNITS/ML SQ SCH (21:00)
[2016-03-27] MEDS: ATORVASTATIN CALCIUM 40 MG TABLET PO SCH (21:16)
[2016-03-27] MEDS: SENNA 187 MG TABLET PO SCH (21:16)
[2016-03-27] MEDS: CONTAINER EMPTY IV SCH (23:07)
[2016-03-27] MEDS: IMMUNE GLOBULIN GAMMA IV SCH (23:07)
[2016-03-28 05:16] LABS: HEPATITIS Bs ANTIGEN SCREEN P Negative (Negative); HEPATITIS C AB SCREEN <0.1 s/co ratio (0.0-0.9)
[2016-03-28 05:22] VITALS: BP 143/68
[2016-03-28 05:52] LABS: GLUCOSE COMMENT 1 Received Meds; GLUCOSE,POINT OF CARE 159 MG/DL (70-110)
[2016-03-28 05:52] LABS: GLUCOSE COMMENT 1 Received Meds; GLUCOSE,POINT OF CARE 157 MG/DL (70-110)
[2016-03-28] MEDS: PANTOPRAZOLE SODIUM 40 MG DR TABLET PO SCH (06:05)
[2016-03-28] MEDS: INSULIN ASPART 100 UNITS/ML SQ PRN ×3 (06:22→20:27)
[2016-03-28 07:15] VITALS: BP 158/68
[2016-03-28 07:17] LABS: EOSINOPHILS % (AUTO) 12.9 % (1.0-6.0); HEMATOCRIT 33.7 % (41-53); LYMPHOCYTES % (AUTO) 14.2 % (22.0-44.0); MEAN CORPUSCULAR HEMOGLOBIN 29.6 pg (26.0-34.0); MEAN CORPUSCULAR HGB CONC 32.7 G/dL (31.0-37.0); MEAN CORPUSCULAR VOLUME 91 fL (80-100); MONOCYTES # (AUTO) 1.1 K/uL (0.1-1.0); MONOCYTES % (AUTO) 16.1 % (2.0-9.0); NEUTROPHILS # (AUTO) 3.9 K/uL (1.8-7.7); NEUTROPHILS % (AUTO) 55.8 % (40.0-70.0); PLATELET COUNT (AUTO) 294 K/uL (150-450); RED BLOOD CELL COUNT(AUTO) 3.72 MIL/uL (4.50-5.90); RED CELL DISTRIBUTION WIDTH 15.5 % (11.5-14.5)
[2016-03-28 07:34] LABS: CALCIUM, TOTAL 8.8 mg/dL (8.8-10.5); CREATININE 5.21 mg/dL (0.60-1.30); MAGNESIUM 2.1 mg/dL (1.80-2.40); PHOSPHORUS 6.9 mg/dL (2.5-4.9); POTASSIUM 4.6 mmol/L (3.5-5.1); URIC ACID 8.6 mg/dL (2.6-7.2)
[2016-03-28] MEDS: CALCIUM ACETATE 667 MG CAPSULE PO SCH ×3 (08:00→17:51)
[2016-03-28] MEDS: 0.9% SODIUM CHLORIDE 10 ML SYRINGE IVP SCH ×3 (10:09→23:36)
[2016-03-28] MEDS: DOCUSATE SODIUM 100 MG CAPSULE PO SCH ×3 (10:09→20:18)
[2016-03-28] MEDS: APIXABAN 2.5 MG TABLET PO SCH ×2 (10:09→20:18)
[2016-03-28] MEDS: PREGABALIN 75 MG CAPSULE PO SCH ×3 (10:09→20:17)
[2016-03-28] MEDS: OxyCODONE HCL/ACETAMINOPHEN 5-325 MG TABLET PO PRN (10:10)
[2016-03-28 10:47] LABS: EPSTEIN-BARR TO EARLY(D)AG-IGG <9.0 U/mL (0.0-8.9)
[2016-03-28 10:57] VITALS: BP 139/83
[2016-03-28] MEDS: ASPIRIN 325 MG TABLET PO SCH (13:27)
[2016-03-28] MEDS: FINASTERIDE 5 MG TABLET PO SCH (13:27)
[2016-03-28] MEDS: CHOLECALCIFEROL (VIT D3) 1,000 UNITS TABLET PO SCH (13:27)
[2016-03-28] MEDS: ISOSORBIDE MONONITRATE 60 MG ER TABLET PO SCH (13:27)
[2016-03-28] MEDS: DOXAZOSIN MESYLATE 2 MG TABLET PO SCH (13:28)
[2016-03-28] MEDS: METOPROLOL TARTRATE 25 MG TABLET PO SCH ×2 (13:28→20:19)
[2016-03-28] MEDS: VITAMIN B COMP/VIT C/FOLIC ACID CAPSULE PO SCH (13:28)
[2016-03-28 15:49] LABS: BILIRUBIN,TOTAL 0.4 mg/dL (0.1-1.0); TOTAL PROTEIN, SERUM 8.5 g/dL (6.4-8.2)
[2016-03-28 15:59] VITALS: BP 141/73
[2016-03-28 16:36] LABS: ALBUMIN 2.5 g/dL (3.4-5.0); CREATINE KINASE MB 6.2 ng/mL (0-5)
[2016-03-28 16:37] LABS: BILIRUBIN,DIRECT 0.2 mg/dL (0.00-0.20)
[2016-03-28 17:02] LABS: GLUCOSE,POINT OF CARE 98 MG/DL (70-110)
[2016-03-28 17:02] LABS: GLUCOSE,POINT OF CARE 137 MG/DL (70-110)
[2016-03-28] MEDS: LOSARTAN POTASSIUM 25 MG TABLET PO SCH (17:20)
[2016-03-28 19:28] LABS: MYCOPLASMA AB IGG 725 U/mL (0-99)
[2016-03-28 20:16] VITALS: BP 145/69
[2016-03-28] MEDS: SENNA 187 MG TABLET PO SCH (20:17)
[2016-03-28] MEDS: ATORVASTATIN CALCIUM 40 MG TABLET PO SCH (20:18)
[2016-03-28] MEDS: INSULIN GLARGINE,HUM.REC.ANLOG 100 UNITS/ML SQ SCH (20:26)
[2016-03-28 20:27] LABS: GLUCOSE,POINT OF CARE 218 MG/DL (70-110)
[2016-03-28 20:32] LABS: GLUCOSE COMMENT 1 Received Meds; GLUCOSE,POINT OF CARE 165 MG/DL (70-110)
[2016-03-28 20:46] LABS: GLUCOSE COMMENT 1 Received Meds; GLUCOSE,POINT OF CARE 154 MG/DL (70-110)
[2016-03-28 20:46] LABS: GLUCOSE,POINT OF CARE 135 MG/DL (70-110)
[2016-03-28 20:46] LABS: GLUCOSE COMMENT 1 Received Meds; GLUCOSE,POINT OF CARE 145 MG/DL (70-110)
[2016-03-28] MEDS: CONTAINER EMPTY IV SCH (23:35)
[2016-03-28] MEDS: IMMUNE GLOBULIN GAMMA IV SCH (23:35)
[2016-03-29] VITALS (7 sets, daily range): BP systolic 120–159; BP diastolic 61–82
[2016-03-29] MEDS: PANTOPRAZOLE SODIUM 40 MG DR TABLET PO SCH (06:14)
[2016-03-29] MEDS: INSULIN ASPART 100 UNITS/ML SQ PRN ×2 (06:19→20:43)
[2016-03-29] MEDS: 0.9% SODIUM CHLORIDE 10 ML SYRINGE IVP SCH ×2 (08:00→16:00)
[2016-03-29] MEDS: DOCUSATE SODIUM 100 MG CAPSULE PO SCH ×3 (09:00→20:37)
[2016-03-29] MEDS ORDERED: MECLIZINE HCL 12.5 MG TABLET PO PRN (09:00)
[2016-03-29] MEDS: CALCIUM ACETATE 667 MG CAPSULE PO SCH ×3 (09:09→18:34)
[2016-03-29] MEDS: CHOLECALCIFEROL (VIT D3) 1,000 UNITS TABLET PO SCH (09:09)
[2016-03-29] MEDS: ASPIRIN 325 MG TABLET PO SCH (09:09)
[2016-03-29] MEDS: DOXAZOSIN MESYLATE 2 MG TABLET PO SCH (09:09)
[2016-03-29] MEDS: EPOETIN ALFA 10,000 UNITS/ML 2 ML VIAL SQ SCH (09:14)
[2016-03-29] MEDS: ISOSORBIDE MONONITRATE 60 MG ER TABLET PO SCH (09:15)
[2016-03-29] MEDS: LOSARTAN POTASSIUM 25 MG TABLET PO SCH (09:15)
[2016-03-29] MEDS: METOPROLOL TARTRATE 25 MG TABLET PO SCH ×2 (09:15→20:37)
[2016-03-29] MEDS: VITAMIN B COMP/VIT C/FOLIC ACID CAPSULE PO SCH (09:15)
[2016-03-29] MEDS: PREGABALIN 75 MG CAPSULE PO SCH ×3 (09:15→20:37)
[2016-03-29] MEDS: FINASTERIDE 5 MG TABLET PO SCH (09:15)
[2016-03-29] MEDS: APIXABAN 2.5 MG TABLET PO SCH ×2 (09:16→20:37)
[2016-03-29] MEDS: IMMUNE GLOBULIN GAMMA IV SCH (18:36)
[2016-03-29] MEDS: CONTAINER EMPTY IV SCH (18:36)
[2016-03-29] MEDS: SENNA 187 MG TABLET PO SCH (20:36)
[2016-03-29] MEDS: ATORVASTATIN CALCIUM 40 MG TABLET PO SCH (20:37)
[2016-03-29] MEDS: INSULIN GLARGINE,HUM.REC.ANLOG 100 UNITS/ML SQ SCH (20:42)
[2016-03-30] MEDS: 0.9% SODIUM CHLORIDE 10 ML SYRINGE IVP SCH ×3 (01:17→15:43)
[2016-03-30 04:02] VITALS: BP 127/55
[2016-03-30] MEDS: PANTOPRAZOLE SODIUM 40 MG DR TABLET PO SCH (05:24)
[2016-03-30 07:18] LABS: CALCIUM, TOTAL 8.6 mg/dL (8.8-10.5); CREATININE 4.22 mg/dL (0.60-1.30); POTASSIUM 4.7 mmol/L (3.5-5.1)
[2016-03-30 07:45] VITALS: BP 122/58
[2016-03-30] MEDS: CALCIUM ACETATE 667 MG CAPSULE PO SCH ×3 (08:10→17:52)
[2016-03-30] MEDS: DOCUSATE SODIUM 100 MG CAPSULE PO SCH ×3 (08:10→20:02)
[2016-03-30] MEDS: PREGABALIN 75 MG CAPSULE PO SCH (08:10)
[2016-03-30] MEDS: ASPIRIN 325 MG TABLET PO SCH (08:11)
[2016-03-30] MEDS: VITAMIN B COMP/VIT C/FOLIC ACID CAPSULE PO SCH (08:19)
[2016-03-30] MEDS: APIXABAN 2.5 MG TABLET PO SCH ×2 (08:19→20:02)
[2016-03-30] MEDS: FINASTERIDE 5 MG TABLET PO SCH (08:19)
[2016-03-30] MEDS: METOPROLOL TARTRATE 25 MG TABLET PO SCH ×2 (08:19→20:02)
[2016-03-30] MEDS: CHOLECALCIFEROL (VIT D3) 1,000 UNITS TABLET PO SCH (08:21)
[2016-03-30 11:28] LABS: GLUCOSE,POINT OF CARE 138 MG/DL (70-110)
[2016-03-30 11:32] LABS: GLUCOSE COMMENT 1 Received Meds; GLUCOSE,POINT OF CARE 213 MG/DL (70-110)
[2016-03-30 11:45] VITALS: BP 121/65
[2016-03-30 15:14] VITALS: BP 158/67
[2016-03-30] MEDS: DOXAZOSIN MESYLATE 2 MG TABLET PO SCH (15:40)
[2016-03-30] MEDS: ISOSORBIDE MONONITRATE 60 MG ER TABLET PO SCH (15:40)
[2016-03-30] MEDS: LOSARTAN POTASSIUM 25 MG TABLET PO SCH (15:41)
[2016-03-30] MEDS ORDERED: 0.9% SODIUM CHLORIDE 5 ML NEB SOLUTION NEB ONE ×2 (16:34→19:21)
[2016-03-30] MEDS: ALBUTEROL SULFATE 2.5 MG/0.5 ML NEB SOLUTION NEB PRN ×2 (16:41→19:25)
[2016-03-30] MEDS: INSULIN ASPART 100 UNITS/ML SQ PRN (18:01)
[2016-03-30 19:18] VITALS: BP 139/60
[2016-03-30] MEDS: ATORVASTATIN CALCIUM 40 MG TABLET PO SCH (20:02)
[2016-03-30] MEDS: SENNA 187 MG TABLET PO SCH (20:02)
[2016-03-30] MEDS: PREGABALIN 50 MG CAPSULE PO SCH (20:02)
[2016-03-30] MEDS: INSULIN GLARGINE,HUM.REC.ANLOG 100 UNITS/ML SQ SCH (20:07)
[2016-03-30 23:19] VITALS: BP 137/64
[2016-03-31] MEDS: 0.9% SODIUM CHLORIDE 10 ML SYRINGE IVP SCH ×3 (00:09→16:41)
[2016-03-31 04:44] VITALS: BP 132/72
[2016-03-31] MEDS: PANTOPRAZOLE SODIUM 40 MG DR TABLET PO SCH (05:02)
[2016-03-31 07:21] VITALS: BP 134/61
[2016-03-31] MEDS: EPOETIN ALFA 10,000 UNITS/ML 2 ML VIAL SQ SCH (08:26)
[2016-03-31] MEDS: METOPROLOL TARTRATE 25 MG TABLET PO SCH (08:27)
[2016-03-31] MEDS: FINASTERIDE 5 MG TABLET PO SCH (08:27)
[2016-03-31] MEDS: VITAMIN B COMP/VIT C/FOLIC ACID CAPSULE PO SCH (08:27)
[2016-03-31] MEDS: CHOLECALCIFEROL (VIT D3) 1,000 UNITS TABLET PO SCH (08:27)
[2016-03-31] MEDS: CALCIUM ACETATE 667 MG CAPSULE PO SCH ×2 (08:28→14:08)
[2016-03-31] MEDS: PREGABALIN 50 MG CAPSULE PO SCH (08:28)
[2016-03-31] MEDS: LOSARTAN POTASSIUM 25 MG TABLET PO SCH (08:28)
[2016-03-31] MEDS: ASPIRIN 325 MG TABLET PO SCH (08:28)
[2016-03-31] MEDS: DOCUSATE SODIUM 100 MG CAPSULE PO SCH ×2 (08:28→16:42)
[2016-03-31] MEDS: ISOSORBIDE MONONITRATE 60 MG ER TABLET PO SCH (08:29)
[2016-03-31] MEDS: APIXABAN 2.5 MG TABLET PO SCH (08:29)
[2016-03-31] MEDS: DOXAZOSIN MESYLATE 2 MG TABLET PO SCH (08:29)
[2016-03-31 11:34] VITALS: BP 123/73
[2016-03-31 11:47] LABS: GLUCOSE,POINT OF CARE 143 MG/DL (70-110)
[2016-03-31 11:52] LABS: GLUCOSE,POINT OF CARE 140 MG/DL (70-110)
[2016-03-31 12:07] LABS: GLUCOSE,POINT OF CARE 111 MG/DL (70-110)
[2016-03-31 12:07] LABS: GLUCOSE,POINT OF CARE 111 MG/DL (70-110)
[2016-03-31] MEDS ORDERED: PHOSLOC PO (13:34)
[2016-03-31] MEDS ORDERED: EPOE10I SQ (13:36)
[2016-03-31] MEDS ORDERED: SENN-30 PO (13:39)
[2016-03-31] MEDS ORDERED: FOLI1CAP2 PO (13:40)
[2016-03-31] MEDS ORDERED: DICL4100G TP (13:46)
[2016-03-31] MEDS ORDERED: DOCU283E PR (13:48)
[2016-03-31] MEDS ORDERED: MECL12.585 PO (13:49)
[2016-03-31 16:37] VITALS: BP 131/60
[2016-04-01 14:01] LABS: GLUCOSE COMMENT 1 Received Meds; GLUCOSE,POINT OF CARE 142 MG/DL (70-110)
[2016-04-01 14:02] LABS: GLUCOSE,POINT OF CARE 140 MG/DL (70-110)
[2016-04-01 14:02] LABS: GLUCOSE,POINT OF CARE 103 MG/DL (70-110)
[2016-04-03 12:32] LABS: ANTI-GM1 (IGG) SCREEN <1:100 titer; ANTI-GM1 (IGM) SCREEN <1:100 titer
[2016-04-19 06:04] LABS: WEST NILE VIRUS IGM CSF 0.01 IV (<=0.89)
== END 2016-03-31 17:00 | DRG 94 ==
LOC: 6N 13:15 → 5S 16:45
PROVIDERS: ADMIT Internal Medicine Geriatric Medicine; ATTEND Internal Medicine Geriatric Medicine
PROC: 5A1D60Z (ICD-10-PCS; principal; 2016-03-25)
DX: G61.0 Guillain-Barre syndrome (principal); N18.6 End stage renal disease; I12.0 Hypertensive chronic kidney disease with stage 5 chronic kidney disease or end stage renal disease; M62.82 Rhabdomyolysis; G62.9 Polyneuropathy, unspecified; E11.22 Type 2 diabetes mellitus with diabetic chronic kidney disease; I25.10 Atherosclerotic heart disease of native coronary artery without angina pectoris; E66.9 Obesity, unspecified; E11.21 Type 2 diabetes mellitus with diabetic nephropathy; K59.00 Constipation, unspecified; E11.40 Type 2 diabetes mellitus with diabetic neuropathy, unspecified; E78.5 Hyperlipidemia, unspecified; D64.9 Anemia, unspecified; G47.33 Obstructive sleep apnea (adult) (pediatric); I49.5 Sick sinus syndrome; Z79.899 Other long term (current) drug therapy; Z79.84 Long term (current) use of oral hypoglycemic drugs; M10.9 Gout, unspecified; Z87.891 Personal history of nicotine dependence; Z95.1 Presence of aortocoronary bypass graft; Z95.0 Presence of cardiac pacemaker; Z68.30 Body mass index [BMI] 30.0-30.9, adult
CPT/HCPCS: 71250; 80074; 82306; 82607; 82746; 82962; 83036; 83516; 83520; 83735; 84100; 84439; 84443; 84550; 85651; 86038; 86140; 86592; 86625; 86644; 86645; 86663; 86694; 86735; 86765; 86787; 86788; 86789; 87389; 87798; 90935; 94640; 97110; 97163; 97166; 97530; 97535; G0238; J0885; J1459; J1815; J7040

== ENCOUNTER → 2016-04-19 | Outpatient (CLI) | payer MEDICARE, OTHER ==
[~2016-04-19] MED LIST changes: -BISA10S PR; +DICL4100G TP; +DOCU283E PR; +EPOE10I SQ; -FOLI0.8T43 PO; +FOLI1CAP2 PO; +MECL12.585 PO; +PHOSLOC PO; +SENN-30 PO
[2016-04-19 12:59] VITALS: BP 81/44
== END | disposition home or self-care (01) ==
LOC: SRCNTR 12:33
PROVIDERS: ATTEND Internal Medicine Critical Care Medicine
DX: N18.6 End stage renal disease (principal); I25.10 Atherosclerotic heart disease of native coronary artery without angina pectoris; J90 Pleural effusion, not elsewhere classified; R05 Cough; J30.9 Allergic rhinitis, unspecified; Z95.1 Presence of aortocoronary bypass graft; Z22.330 Carrier of Group B streptococcus
CPT/HCPCS: G0463

== ENCOUNTER → 2016-05-19 | Outpatient (CLI) | payer MEDICARE, OTHER ==
[2016-05-19 09:52] LABS: BASOPHILS % (AUTO) 1.3 % (0.0-2.0); EOSINOPHILS % (AUTO) 15.4 % (1.0-6.0); HEMATOCRIT 39.4 % (41-53); HEMOGLOBIN 12.6 g/dL (13.5-17.5); LYMPHOCYTES # (AUTO) 2.4 K/uL (1.0-4.8); LYMPHOCYTES % (AUTO) 29.5 % (22.0-44.0); MEAN CORPUSCULAR HEMOGLOBIN 27.5 pg (26.0-34.0); MEAN CORPUSCULAR VOLUME 86 fL (80-100); MONOCYTES # (AUTO) 0.8 K/uL (0.1-1.0); MONOCYTES % (AUTO) 10.1 % (2.0-9.0); NEUTROPHILS # (AUTO) 3.6 K/uL (1.8-7.7); NEUTROPHILS % (AUTO) 43.7 % (40.0-70.0); PLATELET COUNT (AUTO) 166 K/uL (150-450); RED BLOOD CELL COUNT(AUTO) 4.59 MIL/uL (4.50-5.90); RED CELL DISTRIBUTION WIDTH 16.7 % (11.5-14.5); WHITE BLOOD COUNT (AUTO) 8.3 K/uL (4.5-11.0)
[2016-05-19 10:00] LABS: HEMOGLOBIN A1C 7.3 % (4.5-6.2)
[2016-05-19 10:05] LABS: ALBUMIN 2.7 g/dL (3.4-5.0); BILIRUBIN,TOTAL 0.4 mg/dL (0.1-1.0); CALCIUM, TOTAL 8.5 mg/dL (8.8-10.5); CHOL/HDL RATIO 4.2 (4.2-7.3); CREATININE 3.38 mg/dL (0.60-1.30); POTASSIUM 3.9 mmol/L (3.5-5.1); THYROID STIMULATING HORMONE 1.36 uIU/mL (0.36-3.74); TOTAL PROTEIN, SERUM 7.6 g/dL (6.4-8.2)
[2016-05-20 12:54] LABS: CREATININE, URINE (mALB) 140.6 mg/dL (Not Estab.)
== END | disposition home or self-care (01) ==
LOC: LABPV 08:23
PROVIDERS: ATTEND Internal Medicine
DX: E11.9 Type 2 diabetes mellitus without complications (principal); I10 Essential (primary) hypertension; E78.2 Mixed hyperlipidemia
CPT/HCPCS: 82043; 82570; 83036; 84443

== ENCOUNTER 2016-11-07 08:39 | Inpatient (IN) | payer MEDICARE, OTHER ==
[~2016-11-07] VITALS: Ht 162.6 cm; Wt 85.1 kg
[~2016-11-07 08:39] MED LIST changes: -ASA3 PO; +ASPI-989 PO; +SENN-175 PO; -SENN-30 PO
[2016-11-07 09:12] LABS: GLUCOSE,POINT OF CARE 186 MG/DL (70-110)
[2016-11-07 09:28] LABS: BASOPHILS # (AUTO) 0.08 K/uL (0.00-0.20); EOSINOPHILS # (AUTO) 1.26 K/uL (0.00-0.70); EOSINOPHILS % (AUTO) 14.75 % (1.0-6.0); HEMATOCRIT 36.4 % (41-53); HEMOGLOBIN 12.5 g/dL (13.5-17.5); LYMPHOCYTES # (AUTO) 1.7 K/uL (1.0-4.8); LYMPHOCYTES % (AUTO) 20.2 % (22.0-44.0); MEAN CORPUSCULAR HEMOGLOBIN 31.4 pg (26.0-34.0); MEAN CORPUSCULAR HGB CONC 34.3 G/dL (31.0-37.0); MEAN CORPUSCULAR VOLUME 92 fL (80-100); MONOCYTES # (AUTO) 0.8 K/uL (0.1-1.0); MONOCYTES % (AUTO) 9.1 % (2.0-9.0); NEUTROPHILS # (AUTO) 4.7 K/uL (1.8-7.7); PLATELET COUNT (AUTO) 172 K/uL (150-450); RED BLOOD CELL COUNT(AUTO) 3.97 MIL/uL (4.50-5.90); WHITE BLOOD COUNT (AUTO) 8.6 K/uL (4.5-11.0)
[2016-11-07 09:37] LABS: APPEARANCE,URINE CLEAR (CLEAR); GLUCOSE, URINE (UA) 500 mg/dL (NEGATIVE); KETONES,URINE NEGATIVE (NEGATIVE); LEUKOCYTE ESTERASE ,URINE NEGATIVE (NEGATIVE); OCCULT BLOOD,URINE SMALL (NEGATIVE); PROTEIN,URINE SEE CONFIRM (NEGATIVE)
[2016-11-07 09:41] LABS: ADD UA MICROSCOPIC YES
[2016-11-07 09:44] LABS: SULFOSALICYLIC ACID,URINE 3+ (Negative)
[2016-11-07 09:45] LABS: WBC,URINE None Seen /HPF (0-5)
[2016-11-07] MEDS ORDERED: ASPIRIN 81 MG CHEWABLE TABLET PO ONE (09:45)
[2016-11-07] MEDS ORDERED: NITROGLYCERIN 2% (1 GM=INCH) PACKET TP ONE (09:45)
[2016-11-07 09:49] LABS: INR 0.9 (0.9-1.1)
[2016-11-07 09:53] LABS: B-TYPE NATRIURETIC PEPTIDE 369 pg/mL (0-100)
[2016-11-07 10:03] LABS: ANION GAP 12 mmol/L (8-16); CALCIUM, TOTAL 8.7 mg/dL (8.8-10.5); CARBON DIOXIDE 25 mmol/L (22-29); CHLORIDE 103 mmol/L (98-107); GLOMERULAR FILTR. RATE CALC 9 mL/min (>60); POTASSIUM 4.3 mmol/L (3.5-5.1); UREA NITROGEN, BLOOD 51 mg/dL (7-18)
[2016-11-07 10:05] LABS: SODIUM SERUM 140 mmol/L (136-145)
[2016-11-07 10:15] LABS: ALANINE AMINOTRANSFERASE 16 U/L (12-78); ALBUMIN 3.5 g/dL (3.4-5.0); ASPARTATE AMINOTRANSFERASE 11 U/L (15-37); BILIRUBIN,TOTAL 0.3 mg/dL (0.1-1.0); CREATINE KINASE MB 2.5 ng/mL (0-5); CREATINE KINASE, TOTAL 168 U/L (39-308); TOTAL PROTEIN, SERUM 7.9 g/dL (6.4-8.2)
[2016-11-07] MEDS ORDERED: GABA-531 PO (13:22)
[2016-11-07] MEDS ORDERED: OMEG-80 PO (13:22)
[2016-11-07] MEDS ORDERED: ONDANSETRON HCL 4 MG/2 ML VIAL IVP PRN (13:30)
[2016-11-07] MEDS ORDERED: MECLIZINE HCL 12.5 MG TABLET PO PRN (13:30)
[2016-11-07] MEDS ORDERED: MORPHINE SULFATE 2 MG/ML SYRINGE IVP PRN (13:30)
[2016-11-07] MEDS ORDERED: ZOLPIDEM TARTRATE 5 MG TABLET PO PRN (13:30)
[2016-11-07] MEDS ORDERED: ALBUTEROL SULFATE 2.5 MG/0.5 ML NEB SOLUTION NEB PRN (13:30)
[2016-11-07] MEDS ORDERED: HYDROCODONE/ACETAMINOPHEN 5-325 MG TABLET PO PRN (13:30)
[2016-11-07] MEDS ORDERED: INSULIN ASPART 100 UNITS/ML SQ ONE (13:30)
[2016-11-07] MEDS ORDERED: IPRATROPIUM BROMIDE 0.5 MG/2.5 ML NEB SOLUTION NEB PRN (13:30)
[2016-11-07] MEDS ORDERED: ACETAMINOPHEN 325 MG TABLET PO PRN (13:30)
[2016-11-07] MEDS ORDERED: 0.9% SODIUM CHLORIDE 10 ML SYRINGE IVP PRN ×2 (13:30)
[2016-11-07 13:34] VITALS: BP 138/70
[2016-11-07] MEDS ORDERED: INSULIN ASPART 100 UNITS/ML SQ SCH (13:45)
[2016-11-07] MEDS: METOPROLOL TARTRATE 25 MG TABLET PO SCH ×2 (14:00→21:37)
[2016-11-07] MEDS ORDERED: ISOSORBIDE MONONITRATE 60 MG ER TABLET PO SCH (14:00)
[2016-11-07] MEDS: ISOSORBIDE MONONITRATE 30 MG ER TABLET PO SCH (14:00)
[2016-11-07] MEDS ORDERED: DOXAZOSIN MESYLATE 2 MG TABLET PO SCH (14:00)
[2016-11-07] MEDS: FINASTERIDE 5 MG TABLET PO SCH (14:00)
[2016-11-07 15:40] VITALS: BP 136/72
[2016-11-07] MEDS ORDERED: DOCUSATE SODIUM 250 MG CAPSULE PO SCH (16:00)
[2016-11-07] MEDS: VITAMIN B COMP/VIT C/FOLIC ACID CAPSULE PO SCH (18:26)
[2016-11-07] MEDS: CALCIUM ACETATE 667 MG CAPSULE PO SCH (18:27)
[2016-11-07 19:53] VITALS: BP 124/59
[2016-11-07] MEDS: DOCUSATE SODIUM 100 MG CAPSULE PO SCH (20:01)
[2016-11-07] MEDS: PREGABALIN 50 MG CAPSULE PO SCH (20:01)
[2016-11-07] MEDS ORDERED: INSULIN DETEMIR 100 UNITS/ML SQ SCH (21:00)
[2016-11-07] MEDS ORDERED: LOSARTAN POTASSIUM 50 MG TABLET PO SCH (21:00)
[2016-11-07] MEDS ORDERED: APIXABAN 2.5 MG TABLET PO SCH (21:00)
[2016-11-07] MEDS ORDERED: ATORVASTATIN CALCIUM 40 MG TABLET PO SCH (21:00)
[2016-11-07 23:26] VITALS: BP 153/64
[2016-11-08 04:42] LABS: GLUCOSE COMMENT 1 Received Meds; GLUCOSE,POINT OF CARE 144 MG/DL (70-110)
[2016-11-08 04:42] LABS: GLUCOSE COMMENT 1 Received Meds; GLUCOSE,POINT OF CARE 219 MG/DL (70-110)
[2016-11-08 04:42] LABS: GLUCOSE COMMENT 1 Received Meds; GLUCOSE,POINT OF CARE 153 MG/DL (70-110)
[2016-11-08 04:45] VITALS: BP 138/67
[2016-11-08] MEDS ORDERED: INSULIN ASPART 100 UNITS/ML SQ SCH (06:30)
[2016-11-08] MEDS ORDERED: PANTOPRAZOLE SODIUM 40 MG DR TABLET PO SCH ×2 (06:30)
[2016-11-08 06:33] LABS: GLUCOSE,POINT OF CARE 162 MG/DL (70-110)
[2016-11-08 07:29] VITALS: BP 143/63
[2016-11-08] MEDS: ISOSORBIDE MONONITRATE 30 MG ER TABLET PO SCH (08:32)
[2016-11-08] MEDS: FINASTERIDE 5 MG TABLET PO SCH (08:32)
[2016-11-08] MEDS: VITAMIN B COMP/VIT C/FOLIC ACID CAPSULE PO SCH (08:32)
[2016-11-08] MEDS: DOCUSATE SODIUM 100 MG CAPSULE PO SCH (08:32)
[2016-11-08] MEDS: METOPROLOL TARTRATE 25 MG TABLET PO SCH (08:33)
[2016-11-08] MEDS: PREGABALIN 50 MG CAPSULE PO SCH (08:33)
[2016-11-08] MEDS: CALCIUM ACETATE 667 MG CAPSULE PO SCH (08:35)
[2016-11-08] MEDS ORDERED: CHOLECALCIFEROL (VIT D3) 2,000 UNITS TABLET PO SCH (09:00)
[2016-11-08] MEDS ORDERED: ASPIRIN 325 MG TABLET PO SCH (09:00)
[2016-11-08 11:16] VITALS: BP 132/65
[2016-11-08] MEDS ORDERED: DOXAZOSIN MESYLATE 2 MG TABLET PO SCH (21:00)
== END 2016-11-08 11:35 | disposition home or self-care (01) | DRG 313 ==
LOC: EMS 08:41 → 5S 10:33
PROVIDERS: ADMIT Internal Medicine; ATTEND Internal Medicine
DX: R07.9 Chest pain, unspecified (principal); I25.10 Atherosclerotic heart disease of native coronary artery without angina pectoris; I13.2 Hypertensive heart and chronic kidney disease with heart failure and with stage 5 chronic kidney disease, or end stage renal disease; N18.6 End stage renal disease; E11.21 Type 2 diabetes mellitus with diabetic nephropathy; I50.30 Unspecified diastolic (congestive) heart failure; D63.1 Anemia in chronic kidney disease; E66.01 Morbid (severe) obesity due to excess calories; E78.5 Hyperlipidemia, unspecified; E11.22 Type 2 diabetes mellitus with diabetic chronic kidney disease; M26 Dentofacial anomalies [including malocclusion]; I48.91 Unspecified atrial fibrillation; M10.9 Gout, unspecified; Z82.49 Family history of ischemic heart disease and other diseases of the circulatory system; Z83.3 Family history of diabetes mellitus; Z95.0 Presence of cardiac pacemaker; Z90.5 Acquired absence of kidney; Z95.1 Presence of aortocoronary bypass graft; Z68.32 Body mass index [BMI] 32.0-32.9, adult
CPT/HCPCS: 82962; 87081; 87340; 90935; 93005; 93306; 99285; J1815

== ENCOUNTER 2017-01-08 21:27 | Inpatient (IN) | payer MEDICARE, OTHER ==
[~2017-01-08] VITALS: Ht 162.6 cm; Wt 86.6 kg
[~2017-01-08 21:27] MED LIST changes: -ALBU2550 IV; -APIX2.5T PO; -D5050I IVP; -DICL4100G TP; -EPOE10I SQ; +GABA-531 PO; -MECL12.585 PO; +OMEG-80 PO; -PERCT PO; -PREG50 PO; -TRAM50TA4 PO; -[UNRECOGNIZED DRUG - CODE] IVP
[2017-01-08 22:06] LABS: GLUCOSE,POINT OF CARE 297 MG/DL (70-110)
[2017-01-08] MEDS ORDERED: ONDANSETRON HCL 4 MG/2 ML VIAL IVP ONE (22:15)
[2017-01-08] MEDS ORDERED: MORPHINE SULFATE 4 MG/ML SYRINGE IVP ONE (22:15)
[2017-01-08 22:16] LABS: BASOPHILS % (AUTO) 0.9 % (0.0-2.0); HEMATOCRIT 34.7 % (41-53); LYMPHOCYTES # (AUTO) 1.6 K/uL (1.0-4.8); LYMPHOCYTES % (AUTO) 18.4 % (22.0-44.0); MEAN CORPUSCULAR HEMOGLOBIN 31.6 pg (26.0-34.0); MEAN CORPUSCULAR HGB CONC 34.6 G/dL (31.0-37.0); MEAN CORPUSCULAR VOLUME 91 fL (80-100); MONOCYTES # (AUTO) 0.9 K/uL (0.1-1.0); MONOCYTES % (AUTO) 10.6 % (2.0-9.0); NEUTROPHILS # (AUTO) 4.6 K/uL (1.8-7.7); NEUTROPHILS % (AUTO) 51.5 % (40.0-70.0); PLATELET COUNT (AUTO) 184 K/uL (150-450); RED CELL DISTRIBUTION WIDTH 13.9 % (11.5-14.5)
[2017-01-08 22:20] LABS: EOSINOPHILS % (AUTO) 18.6 % (1.0-6.0)
[2017-01-08 22:29] LABS: INR 0.9 (0.9-1.1); PROTHROMBIN TIME 9.8 SEC (9.4-11.6)
[2017-01-08] MEDS ORDERED: HEPARIN SODIUM,PORCINE 5,000 UNITS/ML VIAL IVP ONE (22:30)
[2017-01-08 22:40] LABS: ANION GAP 14 mmol/L (8-16); CALCIUM, TOTAL 8.7 mg/dL (8.8-10.5); CARBON DIOXIDE 23 mmol/L (22-29); CHLORIDE 102 mmol/L (98-107); CREATININE 6.24 mg/dL (0.60-1.30); GLOMERULAR FILTR. RATE CALC 9 mL/min (>60); POTASSIUM 4.8 mmol/L (3.5-5.1); SODIUM SERUM 139 mmol/L (136-145); UREA NITROGEN, BLOOD 58 mg/dL (7-18)
[2017-01-08 22:58] LABS: B-TYPE NATRIURETIC PEPTIDE 359 pg/mL (0-100)
[2017-01-08 23:05] LABS: ALANINE AMINOTRANSFERASE 19 U/L (12-78); ALBUMIN 3.4 g/dL (3.4-5.0); ASPARTATE AMINOTRANSFERASE 12 U/L (15-37); BILIRUBIN,TOTAL 0.3 mg/dL (0.1-1.0); CREATINE KINASE MB 2.9 ng/mL (0-5); CREATINE KINASE, TOTAL 201 U/L (39-308); TOTAL PROTEIN, SERUM 7.7 g/dL (6.4-8.2)
[2017-01-09] MEDS ORDERED: OxyCODONE HCL/ACETAMINOPHEN 5-325 MG TABLET PO PRN (02:30)
[2017-01-09] MEDS ORDERED: MAGNESIUM HYDROXIDE SUSPENSION 30 ML UDCUP PO PRN (02:30)
[2017-01-09] MEDS ORDERED: ZOLPIDEM TARTRATE 5 MG TABLET PO PRN ×2 (02:30→08:45)
[2017-01-09] MEDS ORDERED: FINASTERIDE 5 MG TABLET PO ONE (02:30)
[2017-01-09] MEDS ORDERED: 0.9% SODIUM CHLORIDE 10 ML SYRINGE IVP PRN ×2 (02:30→08:45)
[2017-01-09] MEDS ORDERED: HYDROCODONE/ACETAMINOPHEN 5-325 MG TABLET PO PRN ×2 (02:30→08:45)
[2017-01-09] MEDS ORDERED: MORPHINE SULFATE 4 MG/ML SYRINGE IVP PRN (02:30)
[2017-01-09] MEDS ORDERED: HEPARIN SODIUM,PORCINE 5,000 UNITS/ML VIAL IVP PRN ×2 (02:45)
[2017-01-09] MEDS ORDERED: HEPARIN SODIUM 25000 UNITS/D5W 250 ML IV PRN (02:45)
[2017-01-09 03:04] VITALS: BP 164/69
[2017-01-09 04:49] VITALS: BP 128/57
[2017-01-09 07:27] VITALS: BP 117/53
[2017-01-09] MEDS ORDERED: ASPIRIN 325 MG EC TABLET PO SCH (08:00)
[2017-01-09] MEDS ORDERED: ACETAMINOPHEN 325 MG TABLET PO PRN (08:45)
[2017-01-09] MEDS ORDERED: IPRATROPIUM BROMIDE 0.5 MG/2.5 ML NEB SOLUTION NEB PRN (08:45)
[2017-01-09] MEDS ORDERED: MORPHINE SULFATE 2 MG/ML SYRINGE IVP PRN (08:45)
[2017-01-09] MEDS ORDERED: PANTOPRAZOLE SODIUM 40 MG DR TABLET PO SCH (08:45)
[2017-01-09] MEDS ORDERED: HEPARIN SODIUM,PORCINE 5,000 UNITS/ML VIAL SQ SCH (08:45)
[2017-01-09] MEDS ORDERED: ALBUTEROL SULFATE 2.5 MG/0.5 ML NEB SOLUTION NEB PRN (08:45)
[2017-01-09] MEDS ORDERED: PANTOPRAZOLE SODIUM 40 MG/VIAL IVP SCH (09:00)
[2017-01-09] MEDS ORDERED: [UNRECOGNIZED DRUG - OTHER] PO SCH (09:00)
[2017-01-09] MEDS ORDERED: METOPROLOL SUCCINATE 50 MG ER TABLET PO SCH (09:00)
[2017-01-09] MEDS: METOPROLOL TARTRATE 25 MG TABLET PO SCH ×2 (09:00→20:51)
[2017-01-09] MEDS ORDERED: ASPIRIN 325 MG TABLET PO SCH (09:00)
[2017-01-09] MEDS ORDERED: NITROGLYCERIN 2% (1 GM=INCH) PACKET TP SCH (09:00)
[2017-01-09] MEDS: DOCUSATE SODIUM 250 MG CAPSULE PO SCH ×3 (09:25→20:50)
[2017-01-09] MEDS: FINASTERIDE 5 MG TABLET PO SCH (09:25)
[2017-01-09] MEDS: ISOSORBIDE MONONITRATE 60 MG ER TABLET PO SCH (09:25)
[2017-01-09] MEDS: HEPARIN SODIUM,PORCINE 5,000 UNITS/ML VIAL SQ SCH ×2 (09:26→20:51)
[2017-01-09] MEDS: OXYGEN THERAPY IH SCH ×2 (09:26→20:49)
[2017-01-09] MEDS ORDERED: CHOLECALCIFEROL (VIT D3) 2,000 UNITS TABLET PO SCH (10:00)
[2017-01-09 10:21] LABS: ALBUMIN 3.2 g/dL (3.4-5.0); BILIRUBIN,TOTAL 0.3 mg/dL (0.1-1.0); CALCIUM, TOTAL 8.4 mg/dL (8.8-10.5); CREATININE 6.39 mg/dL (0.60-1.30); POTASSIUM 5.3 mmol/L (3.5-5.1); TOTAL PROTEIN, SERUM 7.6 g/dL (6.4-8.2)
[2017-01-09] MEDS ORDERED: LOSA50TA37 PO (10:44)
[2017-01-09 10:48] LABS: BASOPHILS # (AUTO) 0.09 K/uL (0.00-0.20); BASOPHILS % (AUTO) 1.1 % (0.0-2.0); EOSINOPHILS # (AUTO) 1.48 K/uL (0.00-0.70); HEMATOCRIT 33.5 % (41-53); HEMOGLOBIN 11.2 g/dL (13.5-17.5); LYMPHOCYTES # (AUTO) 1.7 K/uL (1.0-4.8); LYMPHOCYTES % (AUTO) 20.7 % (22.0-44.0); MEAN CORPUSCULAR HEMOGLOBIN 30.9 pg (26.0-34.0); MEAN CORPUSCULAR HGB CONC 33.3 G/dL (31.0-37.0); MEAN CORPUSCULAR VOLUME 93 fL (80-100); MONOCYTES # (AUTO) 0.8 K/uL (0.1-1.0); MONOCYTES % (AUTO) 9.9 % (2.0-9.0); NEUTROPHILS % (AUTO) 49.8 % (40.0-70.0); PLATELET COUNT (AUTO) 166 K/uL (150-450); RED BLOOD CELL COUNT(AUTO) 3.62 MIL/uL (4.50-5.90); RED CELL DISTRIBUTION WIDTH 13.8 % (11.5-14.5)
[2017-01-09 11:03] LABS: EOSINOPHILS % (AUTO) 18.53 % (1.0-6.0)
[2017-01-09 11:16] VITALS: BP 135/76
[2017-01-09] MEDS ORDERED: DEXTROSE 50%-WATER 25 GM/50 ML SYRINGE IVP PRN (11:30)
[2017-01-09] MEDS: CALCIUM ACETATE 667 MG CAPSULE PO SCH ×2 (12:00→18:28)
[2017-01-09] MEDS: VITAMIN B COMP/VIT C/FOLIC ACID CAPSULE PO SCH (12:10)
[2017-01-09] MEDS: OMEGA-3/DHA/EPA/FISH OIL 1,000 MG CAPSULE PO SCH (12:11)
[2017-01-09] MEDS ORDERED: MANNITOL 25%-12.5 GM/50 ML VIAL IVP PRN (13:15)
[2017-01-09] MEDS ORDERED: ALBUMIN HUMAN 25%-12.5GM/50ML IV BOTTLE IV PRN (13:15)
[2017-01-09] MEDS ORDERED: SODIUM CHLORIDE 0.9% 2,000 ML IV ONE (15:11)
[2017-01-09 15:24] VITALS: BP 114/64
[2017-01-09] MEDS: INSULIN ASPART 100 UNITS/ML SQ PRN ×2 (17:12→20:59)
[2017-01-09] MEDS: INSULIN ASPART 100 UNITS/ML SQ SCH (17:30)
[2017-01-09] MEDS ORDERED: MANNITOL 25%-12.5 GM/50 ML VIAL IVP ONE (17:39)
[2017-01-09 19:51] VITALS: BP 115/48
[2017-01-09] MEDS: DOXAZOSIN MESYLATE 2 MG TABLET PO SCH (20:50)
[2017-01-09] MEDS: GABAPENTIN 300 MG CAPSULE PO SCH (20:50)
[2017-01-09] MEDS: LOSARTAN POTASSIUM 50 MG TABLET PO SCH (20:51)
[2017-01-09] MEDS: INSULIN GLARGINE,HUM.REC.ANLOG 100 UNITS/ML SQ SCH (20:57)
[2017-01-09] MEDS ORDERED: ATORVASTATIN CALCIUM 40 MG TABLET PO SCH (21:00)
[2017-01-09] MEDS ORDERED: ATORVASTATIN CALCIUM 20 MG TABLET PO SCH (21:00)
[2017-01-09] MEDS ORDERED: LOSARTAN POTASSIUM 50 MG TABLET PO SCH (21:00)
[2017-01-10] VITALS (16 sets, daily range): BP systolic 92–149; BP diastolic 37–96
[2017-01-10] MEDS: PANTOPRAZOLE SODIUM 40 MG DR TABLET PO SCH (05:38)
[2017-01-10] MEDS: INSULIN ASPART 100 UNITS/ML SQ SCH ×2 (05:39→17:43)
[2017-01-10] MEDS: CALCIUM ACETATE 667 MG CAPSULE PO SCH ×3 (08:00→17:30)
[2017-01-10] MEDS: OXYGEN THERAPY IH SCH ×2 (08:00→21:26)
[2017-01-10] MEDS ORDERED: IOHEXOL 300 MG/ML 150 ML VIAL ONE (08:49)
[2017-01-10] MEDS ORDERED: LIDOCAINE HCL/PF 1% 30 ML VIAL ONE (08:49)
[2017-01-10] MEDS ORDERED: SODIUM BICARBONATE 50 MEQ/50 ML VIAL ONE (08:49)
[2017-01-10] MEDS ORDERED: HEPARIN SODIUM 1000 UNITS/NS 1,000 ML ONE (08:50)
[2017-01-10 09:00] LABS: BASOPHILS # (AUTO) 0.11 K/uL (0.00-0.20); EOSINOPHILS # (AUTO) 1.67 K/uL (0.00-0.70); EOSINOPHILS % (AUTO) 14.56 % (1.0-6.0); HEMATOCRIT 36.3 % (41-53); HEMOGLOBIN 12.3 g/dL (13.5-17.5); LYMPHOCYTES # (AUTO) 1.9 K/uL (1.0-4.8); LYMPHOCYTES % (AUTO) 16.5 % (22.0-44.0); MEAN CORPUSCULAR HEMOGLOBIN 31.2 pg (26.0-34.0); MEAN CORPUSCULAR HGB CONC 33.8 G/dL (31.0-37.0); MEAN CORPUSCULAR VOLUME 92 fL (80-100); MONOCYTES # (AUTO) 1.2 K/uL (0.1-1.0); MONOCYTES % (AUTO) 10.3 % (2.0-9.0); NEUTROPHILS # (AUTO) 6.6 K/uL (1.8-7.7); NEUTROPHILS % (AUTO) 57.7 % (40.0-70.0); PLATELET COUNT (AUTO) 167 K/uL (150-450); RED BLOOD CELL COUNT(AUTO) 3.93 MIL/uL (4.50-5.90); RED CELL DISTRIBUTION WIDTH 14.3 % (11.5-14.5); WHITE BLOOD COUNT (AUTO) 11.5 K/uL (4.5-11.0)
[2017-01-10] MEDS: ISOSORBIDE MONONITRATE 60 MG ER TABLET PO SCH (09:00)
[2017-01-10] MEDS: HEPARIN SODIUM,PORCINE 5,000 UNITS/ML VIAL SQ SCH ×2 (09:00→21:13)
[2017-01-10] MEDS: CHOLECALCIFEROL (VIT D3) 1,000 UNITS TABLET PO SCH (09:00)
[2017-01-10] MEDS: OMEGA-3/DHA/EPA/FISH OIL 1,000 MG CAPSULE PO SCH (09:00)
[2017-01-10] MEDS: VITAMIN B COMP/VIT C/FOLIC ACID CAPSULE PO SCH (09:00)
[2017-01-10] MEDS: DOCUSATE SODIUM 250 MG CAPSULE PO SCH ×3 (09:00→21:13)
[2017-01-10] MEDS: FINASTERIDE 5 MG TABLET PO SCH (09:00)
[2017-01-10 09:10] LABS: HEMOGLOBIN A1C 8.1 % (4.5-6.2)
[2017-01-10 09:23] LABS: CALCIUM, TOTAL 8.5 mg/dL (8.8-10.5); CHOL/HDL RATIO 5.4 (4.2-7.3); CREATININE 5.31 mg/dL (0.60-1.30); POTASSIUM 4.7 mmol/L (3.5-5.1); THYROID STIMULATING HORMONE 0.88 uIU/mL (0.36-3.74)
[2017-01-10] MEDS ORDERED: MIDAZOLAM HCL 2 MG/2 ML VIAL ONE (09:31)
[2017-01-10] MEDS ORDERED: FentaNYL CITRATE-PF 100 MCG/2 ML VIAL ONE (09:31)
[2017-01-10] MEDS ORDERED: IOHEXOL 300 MG/ML 100 ML VIAL ONE ×3 (09:31→10:34)
[2017-01-10] MEDS ORDERED: HEPARIN SODIUM 2,000 UNITS in HEPARIN SODIUM 1000 UNITS/NS 1,000 ML IARTER ONE (09:36)
[2017-01-10] MEDS ORDERED: SODIUM CHLORIDE 0.9% 500 ML IV ONE (09:36)
[2017-01-10] MEDS ORDERED: MIDAZOLAM HCL 2 MG/2 ML VIAL IVP ONE (09:45)
[2017-01-10] MEDS ORDERED: IOHEXOL 300 MG/ML 150 ML VIAL IARTER ONE (09:45)
[2017-01-10] MEDS ORDERED: LIDOCAINE 1% 30 ML/SOD BICARB 8.4% 4 ML SQ ONE (09:45)
[2017-01-10] MEDS ORDERED: FentaNYL CITRATE-PF 100 MCG/2 ML VIAL IVP ONE ×2 (09:45→10:15)
[2017-01-10] MEDS ORDERED: IOHEXOL 300 MG/ML 100 ML VIAL IARTER ONE ×3 (10:00→10:45)
[2017-01-10] MEDS ORDERED: IOHEXOL 300 MG/ML 50 ML VIAL ONE (10:03)
[2017-01-10] MEDS ORDERED: VERAPAMIL HCL 2.5 MG/ML 2 ML VIAL ONE (10:03)
[2017-01-10] MEDS ORDERED: NITROGLYCERIN 50 MG/D5% WATER 250 ML ONE (10:03)
[2017-01-10] MEDS ORDERED: IOHEXOL 240 MG/ML 50 ML VIAL IARTER ONE (10:15)
[2017-01-10] MEDS ORDERED: HEPARIN SODIUM,PORCINE 5,000 UNITS/ML VIAL IVP ONE (10:15)
[2017-01-10] MEDS ORDERED: VERAPAMIL HCL 2.5 MG/ML 2 ML VIAL ICOR ONE (10:45)
[2017-01-10] MEDS ORDERED: NITROGLYCERIN/D5W 50 MG/250 ML IV BOTTLE ICOR ONE (10:45)
[2017-01-10] MEDS ORDERED: CLOPIDOGREL BISULFATE 300 MG TABLET PO ONE (11:00)
[2017-01-10] MEDS ORDERED: CLOPIDOGREL BISULFATE 300 MG TABLET ONE (11:01)
[2017-01-10 11:48] LABS: GLUCOSE COMMENT 1 Received Meds; GLUCOSE,POINT OF CARE 314 MG/DL (70-110)
[2017-01-10 11:53] LABS: GLUCOSE COMMENT 1 Received Meds; GLUCOSE,POINT OF CARE 226 MG/DL (70-110)
[2017-01-10 11:53] LABS: GLUCOSE,POINT OF CARE 224 MG/DL (70-110)
[2017-01-10 11:53] LABS: GLUCOSE,POINT OF CARE 202 MG/DL (70-110)
[2017-01-10] MEDS: METOPROLOL TARTRATE 25 MG TABLET PO SCH ×2 (15:08→21:13)
[2017-01-10 16:47] LABS: GLUCOSE COMMENT 1 Received Meds; GLUCOSE,POINT OF CARE 184 MG/DL (70-110)
[2017-01-10 16:47] LABS: GLUCOSE COMMENT 1 Received Meds; GLUCOSE,POINT OF CARE 185 MG/DL (70-110)
[2017-01-10] MEDS: ROSUVASTATIN CALCIUM 20 MG TABLET PO SCH (17:40)
[2017-01-10] MEDS: INSULIN ASPART 100 UNITS/ML SQ PRN (17:44)
[2017-01-10] MEDS: INSULIN GLARGINE,HUM.REC.ANLOG 100 UNITS/ML SQ SCH (21:00)
[2017-01-10] MEDS: GABAPENTIN 300 MG CAPSULE PO SCH (21:13)
[2017-01-10] MEDS: DOXAZOSIN MESYLATE 2 MG TABLET PO SCH (22:35)
[2017-01-10] MEDS: LOSARTAN POTASSIUM 50 MG TABLET PO SCH (22:35)
[2017-01-10 23:13] LABS: GLUCOSE COMMENT 1 Juice/Food/D50 Given; GLUCOSE,POINT OF CARE 68 MG/DL (70-110)
[2017-01-10 23:13] LABS: GLUCOSE COMMENT 1 Juice/Food/D50 Given; GLUCOSE,POINT OF CARE 47 MG/DL (70-110)
[2017-01-10 23:13] LABS: GLUCOSE,POINT OF CARE 158 MG/DL (70-110)
[2017-01-11] VITALS: BP 131/64
[2017-01-11 04:00] VITALS: BP 126/58
[2017-01-11 06:00] LABS: ALBUMIN 2.8 g/dL (3.4-5.0); BILIRUBIN,TOTAL 0.4 mg/dL (0.1-1.0); CALCIUM, TOTAL 7.7 mg/dL (8.8-10.5); CREATININE 7.05 mg/dL (0.60-1.30); POTASSIUM 5.3 mmol/L (3.5-5.1); TOTAL PROTEIN, SERUM 6.8 g/dL (6.4-8.2)
[2017-01-11] MEDS: PANTOPRAZOLE SODIUM 40 MG DR TABLET PO SCH (06:20)
[2017-01-11] MEDS: INSULIN ASPART 100 UNITS/ML SQ SCH ×3 (06:20→17:51)
[2017-01-11 06:57] LABS: GLUCOSE,POINT OF CARE 127 MG/DL (70-110)
[2017-01-11] MEDS ORDERED: ALBUMIN HUMAN 25%-12.5GM/50ML IV BOTTLE IV ONE (07:01)
[2017-01-11 08:00] VITALS: BP 126/82
[2017-01-11 08:27] LABS: GLUCOSE COMMENT 1 Received Meds; GLUCOSE,POINT OF CARE 152 MG/DL (70-110)
[2017-01-11] MEDS: ISOSORBIDE MONONITRATE 60 MG ER TABLET PO SCH (08:39)
[2017-01-11] MEDS: VITAMIN B COMP/VIT C/FOLIC ACID CAPSULE PO SCH (08:39)
[2017-01-11] MEDS: ASPIRIN 81 MG CHEWABLE TABLET PO SCH (08:40)
[2017-01-11] MEDS: OMEGA-3/DHA/EPA/FISH OIL 1,000 MG CAPSULE PO SCH (08:40)
[2017-01-11] MEDS: ROSUVASTATIN CALCIUM 20 MG TABLET PO SCH (08:40)
[2017-01-11] MEDS: FINASTERIDE 5 MG TABLET PO SCH (08:40)
[2017-01-11] MEDS: CALCIUM ACETATE 667 MG CAPSULE PO SCH ×3 (08:40→17:49)
[2017-01-11] MEDS: CLOPIDOGREL BISULFATE 75 MG TABLET PO SCH (08:41)
[2017-01-11] MEDS: DOCUSATE SODIUM 250 MG CAPSULE PO SCH ×3 (08:41→21:00)
[2017-01-11] MEDS: CHOLECALCIFEROL (VIT D3) 1,000 UNITS TABLET PO SCH (08:41)
[2017-01-11] MEDS: METOPROLOL TARTRATE 25 MG TABLET PO SCH ×2 (08:41→21:02)
[2017-01-11] MEDS: HEPARIN SODIUM,PORCINE 5,000 UNITS/ML VIAL SQ SCH ×2 (08:42→21:00)
[2017-01-11] MEDS: OXYGEN THERAPY IH SCH ×2 (08:43→21:01)
[2017-01-11] MEDS ORDERED: LACTULOSE 20 GM/30 ML SOLUTION UDCUP PO SCH (09:00)
[2017-01-11] MEDS: INSULIN GLARGINE,HUM.REC.ANLOG 100 UNITS/ML SQ SCH (09:18)
[2017-01-11 11:51] LABS: GLUCOSE COMMENT 1 Received Meds; GLUCOSE,POINT OF CARE 199 MG/DL (70-110)
[2017-01-11 11:56] VITALS: BP 101/53
[2017-01-11] MEDS: INSULIN ASPART 100 UNITS/ML SQ PRN ×3 (12:16→21:32)
[2017-01-11] MEDS ORDERED: MANNITOL 25%-12.5 GM/50 ML VIAL IVP PRN (14:45)
[2017-01-11] MEDS ORDERED: ALBUMIN HUMAN 25%-12.5GM/50ML IV BOTTLE IV PRN (14:45)
[2017-01-11 15:26] VITALS: BP 113/57
[2017-01-11] MEDS ORDERED: SODIUM CHLORIDE 0.9% 2,000 ML IV ONE (17:55)
[2017-01-11 19:26] VITALS: BP 119/57
[2017-01-11] MEDS: LACTULOSE 20 GM/30 ML SOLUTION UDCUP PO SCH (20:50)
[2017-01-11] MEDS: LOSARTAN POTASSIUM 50 MG TABLET PO SCH (21:01)
[2017-01-11] MEDS: GABAPENTIN 300 MG CAPSULE PO SCH (21:01)
[2017-01-11] MEDS: DOXAZOSIN MESYLATE 2 MG TABLET PO SCH (21:24)
[2017-01-12 00:03] VITALS: BP 119/60
[2017-01-12 04:34] VITALS: BP 115/60
[2017-01-12] MEDS: PANTOPRAZOLE SODIUM 40 MG DR TABLET PO SCH (06:28)
[2017-01-12 06:32] LABS: ALBUMIN 2.7 g/dL (3.4-5.0); BILIRUBIN,TOTAL 0.4 mg/dL (0.1-1.0); CALCIUM, TOTAL 8.6 mg/dL (8.8-10.5); CREATININE 7.09 mg/dL (0.60-1.30); MAGNESIUM 1.7 mg/dL (1.80-2.40); PHOSPHORUS 5.4 mg/dL (2.5-4.9); TOTAL PROTEIN, SERUM 6.8 g/dL (6.4-8.2)
[2017-01-12 07:41] VITALS: BP 111/48
[2017-01-12] MEDS: INSULIN ASPART 100 UNITS/ML SQ SCH ×2 (08:23→12:15)
[2017-01-12] MEDS: INSULIN GLARGINE,HUM.REC.ANLOG 100 UNITS/ML SQ SCH (08:24)
[2017-01-12] MEDS: ASPIRIN 81 MG CHEWABLE TABLET PO SCH (08:25)
[2017-01-12] MEDS: CLOPIDOGREL BISULFATE 75 MG TABLET PO SCH (08:25)
[2017-01-12] MEDS: FINASTERIDE 5 MG TABLET PO SCH (08:26)
[2017-01-12] MEDS: CHOLECALCIFEROL (VIT D3) 1,000 UNITS TABLET PO SCH (08:26)
[2017-01-12] MEDS: VITAMIN B COMP/VIT C/FOLIC ACID CAPSULE PO SCH (08:26)
[2017-01-12] MEDS: ROSUVASTATIN CALCIUM 20 MG TABLET PO SCH (08:26)
[2017-01-12] MEDS: HEPARIN SODIUM,PORCINE 5,000 UNITS/ML VIAL SQ SCH (08:26)
[2017-01-12] MEDS: CALCIUM ACETATE 667 MG CAPSULE PO SCH ×2 (08:27→12:17)
[2017-01-12] MEDS: OMEGA-3/DHA/EPA/FISH OIL 1,000 MG CAPSULE PO SCH (08:27)
[2017-01-12] MEDS: DOCUSATE SODIUM 250 MG CAPSULE PO SCH ×2 (08:30→16:00)
[2017-01-12] MEDS: LACTULOSE 20 GM/30 ML SOLUTION UDCUP PO SCH (08:30)
[2017-01-12 08:31] VITALS: BP 105/46
[2017-01-12] MEDS: OXYGEN THERAPY IH SCH (08:31)
[2017-01-12] MEDS: ISOSORBIDE MONONITRATE 60 MG ER TABLET PO SCH (08:31)
[2017-01-12 11:53] LABS: GLUCOSE COMMENT 1 Received Meds; GLUCOSE,POINT OF CARE 171 MG/DL (70-110)
[2017-01-12 11:53] LABS: GLUCOSE COMMENT 1 Received Meds; GLUCOSE,POINT OF CARE 248 MG/DL (70-110)
[2017-01-12 11:53] LABS: GLUCOSE,POINT OF CARE 211 MG/DL (70-110)
[2017-01-12 11:53] LABS: GLUCOSE,POINT OF CARE 179 MG/DL (70-110)
[2017-01-12] MEDS: METOPROLOL TARTRATE 25 MG TABLET PO SCH (12:05)
[2017-01-12 12:13] VITALS: BP 106/54
[2017-01-12] MEDS: INSULIN ASPART 100 UNITS/ML SQ PRN (12:17)
[2017-01-12] MEDS ORDERED: LACT30L PO (15:32)
[2017-01-12] MEDS ORDERED: CLOP75 PO (15:32)
[2017-01-12] MEDS ORDERED: PANT40TA25 PO (15:33)
[2017-01-12] MEDS ORDERED: ROSU20 PO (15:33)
[2017-01-12] MEDS ORDERED: FOLI1CAP2 PO (15:34)
[2017-01-12] MEDS ORDERED: ACET325C PO (15:35)
[2017-01-12] MEDS ORDERED: HYDR-4061 PO (15:36)
[2017-01-12] MEDS ORDERED: INSNOV SQ (15:37)
[2017-01-12] MEDS ORDERED: ZOLP5 PO (15:39)
[2017-01-12] MEDS ORDERED: IPRNEB NEB (15:39)
[2017-01-12 16:05] VITALS: BP 119/43
[2017-01-12] MEDS ORDERED: INSULIN ASPART 100 UNITS/ML SQ SCH (17:30)
[2017-01-12 18:03] LABS: GLUCOSE,POINT OF CARE 91 MG/DL (70-110)
[2017-01-12 18:03] LABS: GLUCOSE COMMENT 1 Received Meds; GLUCOSE,POINT OF CARE 191 MG/DL (70-110)
== END 2017-01-12 17:50 | DRG 246 ==
LOC: EMS 21:29 → 5N 01-09 01:21 → ICU 01-10 11:03 → 5S 01-11 11:40
PROVIDERS: ADMIT Internal Medicine; ATTEND Internal Medicine
PROC: 5A1D70Z Performance of Urinary Filtration, Intermittent, Less than 6 Hours Per Day (ICD-10-PCS; principal; 2017-01-09)
PROC: 027036Z Dilation of Coronary Artery, One Artery with Three Drug-eluting Intraluminal Devices, Percutaneous Approach (ICD-10-PCS; 2017-01-10)
PROC: 4A023N7 Measurement of Cardiac Sampling and Pressure, Left Heart, Percutaneous Approach (ICD-10-PCS; 2017-01-10)
PROC: B2111ZZ Fluoroscopy of Multiple Coronary Arteries using Low Osmolar Contrast (ICD-10-PCS; 2017-01-10)
PROC: B2151ZZ Fluoroscopy of Left Heart using Low Osmolar Contrast (ICD-10-PCS; 2017-01-10)
PROC: B2121ZZ Fluoroscopy of Single Coronary Artery Bypass Graft using Low Osmolar Contrast (ICD-10-PCS; 2017-01-10)
PROC: B2181ZZ Fluoroscopy of Left Internal Mammary Bypass Graft using Low Osmolar Contrast (ICD-10-PCS; 2017-01-10)
PROC: B41J1ZZ Fluoroscopy of Other Lower Arteries using Low Osmolar Contrast (ICD-10-PCS; 2017-01-10)
PROC: 5A1D70Z Performance of Urinary Filtration, Intermittent, Less than 6 Hours Per Day (ICD-10-PCS; 2017-01-11)
DX: I25.10 Atherosclerotic heart disease of native coronary artery without angina pectoris (principal); N18.6 End stage renal disease; I13.2 Hypertensive heart and chronic kidney disease with heart failure and with stage 5 chronic kidney disease, or end stage renal disease; G61.0 Guillain-Barre syndrome; E11.22 Type 2 diabetes mellitus with diabetic chronic kidney disease; E11.649 Type 2 diabetes mellitus with hypoglycemia without coma; E11.21 Type 2 diabetes mellitus with diabetic nephropathy; I95.9 Hypotension, unspecified; I49.5 Sick sinus syndrome; E78.00 Pure hypercholesterolemia, unspecified; E66.9 Obesity, unspecified; I50.9 Heart failure, unspecified; D64.9 Anemia, unspecified; E87.70 Fluid overload, unspecified; I48.91 Unspecified atrial fibrillation; Z99.81 Dependence on supplemental oxygen; Z99.2 Dependence on renal dialysis; Z79.82 Long term (current) use of aspirin; Z95.1 Presence of aortocoronary bypass graft; Z79.899 Other long term (current) drug therapy; Z98.61 Coronary angioplasty status; Z79.4 Long term (current) use of insulin; Z68.32 Body mass index [BMI] 32.0-32.9, adult; T14.8XXA Other injury of unspecified body region, initial encounter
CPT/HCPCS: 82962; 83036; 83735; 84100; 84443; 87081; 87340; 90935; 92920; 92928; 93005; 93306; 93308; 93459; 96374; 96375; 99285; C9113; J1644; J1815; J2150; J2250; J2270; J2405; J3010; J3490; J7030; P9047; Q9967

== ENCOUNTER → 2017-03-23 | Outpatient (CLI) | payer MEDICARE, OTHER ==
[~2017-03-23] MED LIST changes: -ACET-2247 PO; +ACET325C PO; -AUD NEB; +CLOP75 PO; -DOCU-119 PO; -DOCU283E PR; +HYDR-4061 PO; +IPRNEB NEB; +LACT30L PO; -LOSA25TA21 PO; +LOSA50TA37 PO; +ROSU20 PO; -SENN-175 PO; +ZOLP5 PO
[2017-03-23 10:52] LABS: BASOPHILS % (AUTO) 1.8 % (0.0-2.0); HEMATOCRIT 38.6 % (41-53); HEMOGLOBIN 13.1 g/dL (13.5-17.5); LYMPHOCYTES # (AUTO) 1.8 K/uL (1.0-4.8); LYMPHOCYTES % (AUTO) 22.7 % (22.0-44.0); MEAN CORPUSCULAR HEMOGLOBIN 31.3 pg (26.0-34.0); MEAN CORPUSCULAR HGB CONC 34.1 G/dL (31.0-37.0); MEAN CORPUSCULAR VOLUME 92 fL (80-100); MONOCYTES # (AUTO) 0.9 K/uL (0.1-1.0); MONOCYTES % (AUTO) 11.2 % (2.0-9.0); NEUTROPHILS # (AUTO) 3.6 K/uL (1.8-7.7); NEUTROPHILS % (AUTO) 45.5 % (40.0-70.0); PLATELET COUNT (AUTO) 172 K/uL (150-450); RED CELL DISTRIBUTION WIDTH 14.1 % (11.5-14.5)
[2017-03-23 10:56] LABS: EOSINOPHILS % (AUTO) 18.8 % (1.0-6.0)
[2017-03-23 11:13] LABS: HEMOGLOBIN A1C 7.5 % (4.5-6.2)
[2017-03-23 11:16] LABS: ALBUMIN 3.5 g/dL (3.4-5.0); BILIRUBIN,TOTAL 0.3 mg/dL (0.1-1.0); CALCIUM, TOTAL 8.8 mg/dL (8.8-10.5); CHOL/HDL RATIO 4.8 (4.2-7.3); CREATININE 4.91 mg/dL (0.60-1.30); POTASSIUM 4.9 mmol/L (3.5-5.1); THYROID STIMULATING HORMONE 0.86 uIU/mL (0.36-3.74); TOTAL PROTEIN, SERUM 7.7 g/dL (6.4-8.2)
== END | disposition home or self-care (01) ==
LOC: LABPV 07:54
PROVIDERS: ATTEND Internal Medicine
DX: I10 Essential (primary) hypertension (principal); E11.9 Type 2 diabetes mellitus without complications; E78.2 Mixed hyperlipidemia
CPT/HCPCS: 82043; 82570; 83036; 84443

== ENCOUNTER → 2017-05-02 | Outpatient (CLI) | payer MEDICARE, OTHER ==
[2017-05-02 09:17] LABS: ABG A-A DIFF O2 30.5 mmHg (10-20.0); ABG BASE EXCESS -3.6 mmol/L (-2.0-3.0); ABG CARBOXYHEMOGLOBIN 1.2 % (0.0-1.5); ABG HCO3 21.8 mmol/L (22.0-26.0); ABG METHEMOGLOBIN 0.3 % (0.0-1.5); ABG OXYGEN CONTENT 16.3 mL/dL (15.0-23.0); ABG OXYGEN SATURATION 94.4 % (95.0-98.0); ABG PCO2 37 mmHg (35-45); ABG TOTAL HEMOGLOBIN 12.4 G/dL (12.0-18.0); PO2, ARTERIAL BG 74.6 mmHg (75.0-83.0); SOURCE, BLOOD GAS ARTERIAL; TEMPERATURE, FAHRENHEIT, BG 98.6 FAHREN (96.0-98.6)
[2017-05-02 09:18] LABS: O2 DEVICE,BLOOD GAS ROOM AIR (ROOM AIR); SITE, BLOOD GAS LFT RADIAL
== END | disposition home or self-care (01) ==
LOC: RESP 08:42
PROVIDERS: ATTEND Internal Medicine
DX: J47.9 Bronchiectasis, uncomplicated (principal)
CPT/HCPCS: 82805

== ENCOUNTER → 2017-05-15 | Outpatient (CLI) | payer MEDICARE, OTHER ==
[2017-05-15 15:55] LABS: SITE, BLOOD GAS LFT RADIAL
[2017-05-15 15:57] LABS: ABG HCO3 22.5 mmol/L (22.0-26.0); ABG PCO2 34 mmHg (35-45); ABG PH 7.418 (7.35-7.450); PO2, ARTERIAL BG 67.6 mmHg (75.0-83.0); SOURCE, BLOOD GAS Arterial
[2017-05-15 15:58] LABS: ABG BASE EXCESS -2.9 mmol/L (-2.0-3.0); ABG CARBOXYHEMOGLOBIN 0.8 % (0.0-1.5); ABG METHEMOGLOBIN 0.3 % (0.0-1.5); ABG OXYGEN CONTENT 17.1 mL/dL (15.0-23.0); ABG OXYGEN SATURATION 93.7 % (95.0-98.0); ABG OXYHEMOGLOBIN 92.7 % (94.0-100.0); ABG TOTAL HEMOGLOBIN 13.1 G/dL (12.0-18.0)
[2017-05-15 15:59] LABS: ABG A-A DIFF O2 41.3 mmHg (10-20.0)
[2017-05-15 16:01] LABS: O2 DEVICE,BLOOD GAS ROOM AIR (ROOM AIR)
== END | disposition home or self-care (01) ==
LOC: RESP 13:47
PROVIDERS: ATTEND Internal Medicine
DX: J47.9 Bronchiectasis, uncomplicated (principal)
CPT/HCPCS: 82805; 94010; 94726; 94727; 94729

== ENCOUNTER → 2017-05-25 | Outpatient (CLI) | payer MEDICARE, OTHER ==
[~2017-05-25] VITALS: Ht 162.6 cm; Wt 88.0 kg
[2017-05-25 12:17] VITALS: BP 80/42
== END | disposition home or self-care (01) ==
LOC: SRCNTR 11:25
PROVIDERS: ATTEND Internal Medicine Critical Care Medicine
DX: J90 Pleural effusion, not elsewhere classified (principal); J30.9 Allergic rhinitis, unspecified; I12.0 Hypertensive chronic kidney disease with stage 5 chronic kidney disease or end stage renal disease; E11.22 Type 2 diabetes mellitus with diabetic chronic kidney disease; N18.6 End stage renal disease; I25.10 Atherosclerotic heart disease of native coronary artery without angina pectoris; E78.5 Hyperlipidemia, unspecified; E11.40 Type 2 diabetes mellitus with diabetic neuropathy, unspecified; R09.02 Hypoxemia; Z79.4 Long term (current) use of insulin; Z79.82 Long term (current) use of aspirin; Z95.1 Presence of aortocoronary bypass graft; Z99.2 Dependence on renal dialysis
CPT/HCPCS: G0463

== ENCOUNTER → 2017-07-16 | Outpatient (CLI) | payer MEDICARE, OTHER ==
[~2017-07-16] VITALS: Ht 162.6 cm; Wt 84.0 kg
[2017-07-16 11:52] VITALS: BP 130/52
== END | disposition home or self-care (01) ==
LOC: SRCNTR 11:31
PROVIDERS: ATTEND Internal Medicine Critical Care Medicine
DX: J90 Pleural effusion, not elsewhere classified (principal); I12.0 Hypertensive chronic kidney disease with stage 5 chronic kidney disease or end stage renal disease; E11.22 Type 2 diabetes mellitus with diabetic chronic kidney disease; N18.6 End stage renal disease; E78.5 Hyperlipidemia, unspecified; J30.9 Allergic rhinitis, unspecified; I25.10 Atherosclerotic heart disease of native coronary artery without angina pectoris; C71.9 Malignant neoplasm of brain, unspecified; Z95.1 Presence of aortocoronary bypass graft
CPT/HCPCS: G0463

== ENCOUNTER → 2018-01-07 | Outpatient (CLI) | payer MEDICARE, OTHER ==
[~2018-01-07] MED LIST changes: -LOSA50TA37 PO; +LOSA50TA64 PO
[2018-01-07 11:49] LABS: ALBUMIN 3.2 g/dL (3.4-5.0); BILIRUBIN,TOTAL 0.2 mg/dL (0.1-1.0); CHOL/HDL RATIO 5.6 (4.2-7.3); CREATININE 7.08 mg/dL (0.60-1.30); POTASSIUM 4.6 mmol/L (3.5-5.1); THYROID STIMULATING HORMONE 1.29 uIU/mL (0.36-3.74); TOTAL PROTEIN, SERUM 7.5 g/dL (6.4-8.2)
[2018-01-07 12:11] LABS: URIC ACID 5.8 mg/dL (2.6-7.2)
== END | disposition home or self-care (01) ==
LOC: LABPV 08:05
PROVIDERS: ATTEND Internal Medicine
DX: E78.2 Mixed hyperlipidemia (principal); I10 Essential (primary) hypertension; E11.9 Type 2 diabetes mellitus without complications; M10.9 Gout, unspecified
CPT/HCPCS: 82043; 82570; 83036; 84443; 84550

== ENCOUNTER 2018-10-15 17:02 | Inpatient (IN) | payer MEDICARE, OTHER ==
[~2018-10-15] VITALS: Ht 162.6 cm; Wt 81.8 kg
[~2018-10-15 17:02] MED LIST changes: -ATOR40TA28 PO; -CLOP75 PO; +CLOP75TA3 PO; -ROSU20 PO; +ROSU20TA23 PO
[2018-10-15 17:26] LABS: GLUCOSE,POINT OF CARE 309 MG/DL (70-110)
[2018-10-15 17:53] LABS: BASOPHILS % (AUTO) 0.2 % (0.0-2.0); HEMATOCRIT 37.5 % (41-53); HEMOGLOBIN 12.6 g/dL (13.5-17.5); LYMPHOCYTES # (AUTO) 1.6 K/uL (1.0-4.8); LYMPHOCYTES % (AUTO) 21.9 % (22.0-44.0); MEAN CORPUSCULAR HEMOGLOBIN 30.9 pg (26.0-34.0); MEAN CORPUSCULAR HGB CONC 33.7 G/dL (31.0-37.0); MEAN CORPUSCULAR VOLUME 92 fL (80-100); MONOCYTES # (AUTO) 0.9 K/uL (0.1-1.0); NEUTROPHILS # (AUTO) 3.5 K/uL (1.8-7.7); NEUTROPHILS % (AUTO) 46.4 % (40.0-70.0); PLATELET COUNT (AUTO) 214 K/uL (150-450); RED BLOOD CELL COUNT(AUTO) 4.09 MIL/uL (4.50-5.90); RED CELL DISTRIBUTION WIDTH 15.2 % (11.5-14.5)
[2018-10-15 17:55] LABS: EOSINOPHILS % (AUTO) 19.5 % (1.0-6.0)
[2018-10-15 18:03] LABS: CALCIUM, TOTAL 8.9 mg/dL (8.8-10.5); CREATININE 5.39 mg/dL (0.60-1.30)
[2018-10-15 18:09] LABS: ALBUMIN 3.4 g/dL (3.4-5.0); BILIRUBIN,TOTAL 0.4 mg/dL (0.1-1.0)
[2018-10-15 18:11] LABS: B-TYPE NATRIURETIC PEPTIDE 588 pg/mL (0-100)
[2018-10-15 18:12] LABS: INR 0.9 (0.9-1.1); PROTHROMBIN TIME 9.7 SEC (9.4-11.6)
[2018-10-15 18:27] LABS: CREATINE KINASE, TOTAL ONLY 157 U/L (39-308)
[2018-10-15] MEDS ORDERED: CefTRIAXone 1 GM/DEXTROSE 50 ML IV ONE (19:15)
[2018-10-15] MEDS ORDERED: ASPIRIN 81 MG CHEWABLE TABLET PO ONE (19:15)
[2018-10-15] MEDS ORDERED: AZITHROMYCIN 500 MG/NS 250 ML IV ONE (19:15)
[2018-10-15] MEDS: NITROGLYCERIN 0.4 MG SUBLINGUAL TABLET #25 SL ONE ×2 (19:19→19:33)
[2018-10-15] MEDS ORDERED: SODIUM CHLORIDE 0.9% 100 ML ONE (20:05)
[2018-10-15] MEDS ORDERED: IOVERSOL 320 MG/ML 100 ML VIAL ONE (20:05)
[2018-10-15] MEDS ORDERED: 0.9% SODIUM CHLORIDE 10 ML SYRINGE IVP PRN (22:00)
[2018-10-15] MEDS ORDERED: ACETAMINOPHEN 325 MG TABLET PO PRN (22:00)
[2018-10-15 22:03] VITALS: BP 147/75
[2018-10-16] MEDS ORDERED: SODIUM CHLORIDE 0.9% 100 ML ONE (00:57)
[2018-10-16 04:19] VITALS: BP 126/47
[2018-10-16 07:18] LABS: BASOPHILS % (AUTO) 1.3 % (0.0-2.0); HEMATOCRIT 35.8 % (41-53); HEMOGLOBIN 11.9 g/dL (13.5-17.5); LYMPHOCYTES # (AUTO) 1.4 K/uL (1.0-4.8); LYMPHOCYTES % (AUTO) 16.5 % (22.0-44.0); MEAN CORPUSCULAR HEMOGLOBIN 30.1 pg (26.0-34.0); MEAN CORPUSCULAR HGB CONC 33.2 G/dL (31.0-37.0); MEAN CORPUSCULAR VOLUME 91 fL (80-100); MONOCYTES % (AUTO) 11.7 % (2.0-9.0); NEUTROPHILS # (AUTO) 4.4 K/uL (1.8-7.7); NEUTROPHILS % (AUTO) 51.5 % (40.0-70.0); PLATELET COUNT (AUTO) 203 K/uL (150-450); RED BLOOD CELL COUNT(AUTO) 3.94 MIL/uL (4.50-5.90); RED CELL DISTRIBUTION WIDTH 15.1 % (11.5-14.5)
[2018-10-16 08:00] LABS: ALBUMIN 3.1 g/dL (3.4-5.0); BILIRUBIN,TOTAL 0.3 mg/dL (0.1-1.0); CALCIUM, TOTAL 8.8 mg/dL (8.8-10.5); CREATININE 6.55 mg/dL (0.60-1.30); POTASSIUM 5.2 mmol/L (3.5-5.1); TOTAL PROTEIN, SERUM 6.8 g/dL (6.4-8.2)
[2018-10-16 08:04] VITALS: BP 119/58
[2018-10-16] MEDS ORDERED: IOVERSOL 350 MG/ML 100 ML VIAL ONE (11:10)
[2018-10-16 11:31] VITALS: BP 141/66
[2018-10-16] MEDS ORDERED: DEXTROSE 50%-WATER 25 GM/50 ML SYG IVP PRN (12:00)
[2018-10-16] MEDS ORDERED: INSULIN REGULAR, HUMAN 100 UNITS/ML SQ PRN (12:00)
[2018-10-16 12:02] LABS: GLUCOMETER DEV NAME(LOC) 5S.2A; GLUCOSE,POINT OF CARE 225 MG/DL (70-110)
[2018-10-16] MEDS ORDERED: DEXTROSE 50%-WATER 25 GM/50 ML SYRINGE IVP PRN (13:15)
[2018-10-16] MEDS ORDERED: INSULIN LISPRO 100 UNITS/ML SQ PRN (13:15)
[2018-10-16 15:12] VITALS: BP 149/65
[2018-10-16] MEDS ORDERED: ACETAMINOPHEN 325 MG TABLET PO PRN (15:30)
[2018-10-16] MEDS ORDERED: IPRATROPIUM BROMIDE 0.5 MG/2.5 ML NEB SOLUTION NEB PRN (15:30)
[2018-10-16] MEDS ORDERED: ALBUTEROL SULFATE 2.5 MG/0.5 ML NEB SOLUTION NEB PRN (15:30)
[2018-10-16] MEDS ORDERED: 0.9% SODIUM CHLORIDE 10 ML SYRINGE IVP PRN ×2 (15:30)
[2018-10-16] MEDS ORDERED: ONDANSETRON HCL 4 MG/2 ML VIAL IVP PRN (15:30)
[2018-10-16] MEDS ORDERED: VITAMIN B COMP/VIT C/FOLIC ACID CAPSULE PO SCH (15:45)
[2018-10-16] MEDS ORDERED: DOCUSATE SODIUM 250 MG CAPSULE PO SCH (16:00)
[2018-10-16] MEDS ORDERED: APIX2.5T PO (16:23)
[2018-10-16] MEDS ORDERED: ADV250 IH (16:24)
[2018-10-16] MEDS ORDERED: TIOT185 IH (16:28)
[2018-10-16 18:05] LABS: GLUCOMETER DEV NAME(LOC) 5S.1; GLUCOSE,POINT OF CARE 260 MG/DL (70-110)
[2018-10-16] MEDS ORDERED: GABAPENTIN 300 MG CAPSULE PO SCH (21:00)
[2018-10-16] MEDS ORDERED: METOPROLOL TARTRATE 50 MG TABLET PO SCH (21:00)
[2018-10-16] MEDS ORDERED: ATORVASTATIN CALCIUM 40 MG TABLET PO SCH (21:00)
[2018-10-16] MEDS ORDERED: FINASTERIDE 5 MG TABLET PO SCH (21:00)
[2018-10-16] MEDS ORDERED: APIXABAN 2.5 MG TABLET PO SCH (21:00)
[2018-10-16] MEDS ORDERED: ATORVASTATIN CALCIUM 20 MG TABLET PO SCH (21:00)
[2018-10-17] MEDS ORDERED: PANTOPRAZOLE SODIUM 40 MG DR TABLET PO SCH ×2 (06:30)
[2018-10-17] MEDS ORDERED: AmLODIPine BESYLATE 5 MG TABLET PO SCH (09:00)
[2018-10-17] MEDS ORDERED: ISOSORBIDE MONONITRATE 60 MG ER TABLET PO SCH (09:00)
[2018-10-17] MEDS ORDERED: ASPIRIN 81 MG EC TABLET PO SCH (09:00)
[2018-10-17] MEDS ORDERED: FAMOTIDINE 20 MG TABLET PO SCH (09:00)
== END 2018-10-16 17:21 | disposition home or self-care (01) | DRG 313 ==
LOC: EMS 17:04 → 5S 20:30
PROVIDERS: ADMIT Internal Medicine; ATTEND Internal Medicine
DX: R07.89 Other chest pain (principal); N18.6 End stage renal disease; G61.0 Guillain-Barre syndrome; I13.2 Hypertensive heart and chronic kidney disease with heart failure and with stage 5 chronic kidney disease, or end stage renal disease; I25.10 Atherosclerotic heart disease of native coronary artery without angina pectoris; E78.5 Hyperlipidemia, unspecified; D63.1 Anemia in chronic kidney disease; I49.5 Sick sinus syndrome; J44.9 Chronic obstructive pulmonary disease, unspecified; E11.22 Type 2 diabetes mellitus with diabetic chronic kidney disease; I48.91 Unspecified atrial fibrillation; E78.00 Pure hypercholesterolemia, unspecified; M10.9 Gout, unspecified; F17.200 Nicotine dependence, unspecified, uncomplicated; K76.0 Fatty (change of) liver, not elsewhere classified; G47.30 Sleep apnea, unspecified; E87.5 Hyperkalemia; E11.21 Type 2 diabetes mellitus with diabetic nephropathy; I44.0 Atrioventricular block, first degree; I50.9 Heart failure, unspecified; Z90.5 Acquired absence of kidney; Z95.1 Presence of aortocoronary bypass graft; Z99.2 Dependence on renal dialysis; Z79.4 Long term (current) use of insulin
CPT/HCPCS: 71260; 87040; 87081; 93005; 99291; J0456; J0696; J7050

== ENCOUNTER 2018-12-25 11:52 | Inpatient (IN) | payer MEDICARE, OTHER ==
[~2018-12-25] VITALS: Ht 157.5 cm; Wt 86.9 kg
[~2018-12-25 11:52] MED LIST changes: +ADV250 IH; +APIX2.5T PO; -CLOP75TA3 PO; -HYDR-4061 PO; +TIOT185 IH
[2018-12-25] MEDS ORDERED: FAMO20 PO (12:10)
[2018-12-25] MEDS ORDERED: FINA5TAB41 PO (12:10)
[2018-12-25] MEDS ORDERED: METO50 PO (12:10)
[2018-12-25] MEDS ORDERED: ATOR40TA28 PO (12:10)
[2018-12-25] MEDS ORDERED: GABA-531 PO (12:10)
[2018-12-25] MEDS ORDERED: INSLAN SQ (12:10)
[2018-12-25] MEDS ORDERED: AMLO2.5T4 PO (12:10)
[2018-12-25] MEDS ORDERED: ASPI81 PO (12:10)
[2018-12-25] MEDS ORDERED: INSNOV SQ (12:10)
[2018-12-25 14:21] LABS: BASOPHILS % (AUTO) 1.4 % (0.0-2.0); HEMOGLOBIN 11.9 g/dL (13.5-17.5); LYMPHOCYTES # (AUTO) 1.5 K/uL (1.0-4.8); LYMPHOCYTES % (AUTO) 18.5 % (22.0-44.0); MEAN CORPUSCULAR HEMOGLOBIN 30.3 pg (26.0-34.0); MEAN CORPUSCULAR VOLUME 92 fL (80-100); MONOCYTES % (AUTO) 12.3 % (2.0-9.0); NEUTROPHILS # (AUTO) 4.3 K/uL (1.8-7.7); NEUTROPHILS % (AUTO) 51.9 % (40.0-70.0); PLATELET COUNT (AUTO) 269 K/uL (150-450); RED BLOOD CELL COUNT(AUTO) 3.91 MIL/uL (4.50-5.90); RED CELL DISTRIBUTION WIDTH 15.5 % (11.5-14.5)
[2018-12-25 14:22] LABS: BILIRUBIN,TOTAL 0.2 mg/dL (0.1-1.0); CALCIUM, TOTAL 8.3 mg/dL (8.8-10.5); CREATININE 8.02 mg/dL (0.60-1.30); POTASSIUM 4.5 mmol/L (3.5-5.1); TOTAL PROTEIN, SERUM 8.3 g/dL (6.4-8.2)
[2018-12-25 14:32] LABS: EOSINOPHILS % (AUTO) 15.9 % (1.0-6.0)
[2018-12-25 14:39] LABS: PROTHROMBIN TIME 10.5 SEC (9.4-11.6)
[2018-12-25] MEDS ORDERED: 0.9% SODIUM CHLORIDE 10 ML SYRINGE IVP PRN (17:45)
[2018-12-25] MEDS ORDERED: ONDANSETRON HCL 4 MG/2 ML VIAL IVP PRN (17:45)
[2018-12-25] MEDS ORDERED: ACETAMINOPHEN 325 MG TABLET PO PRN (17:45)
[2018-12-26] MEDS: VITAMIN B COMP/VIT C/FOLIC ACID CAPSULE PO SCH (11:23)
[2018-12-26 13:56] VITALS: BP 181/84
[2018-12-26 15:58] VITALS: BP 113/69
[2018-12-26] MEDS ORDERED: IPRATROPIUM BROMIDE 0.5 MG/2.5 ML NEB SOLUTION NEB PRN (18:00)
[2018-12-26] MEDS ORDERED: ONDANSETRON HCL 4 MG/2 ML VIAL IVP PRN (18:00)
[2018-12-26] MEDS ORDERED: ALBUTEROL SULFATE 2.5 MG/0.5 ML NEB SOLUTION NEB PRN (18:00)
[2018-12-26] MEDS ORDERED: 0.9% SODIUM CHLORIDE 10 ML SYRINGE IVP PRN ×2 (18:00)
[2018-12-26] MEDS ORDERED: ACETAMINOPHEN 325 MG TABLET PO PRN (18:00)
[2018-12-26] MEDS ORDERED: MORPHINE SULFATE 2 MG/ML SYRINGE IVP PRN (18:00)
[2018-12-26] MEDS: PANTOPRAZOLE SODIUM 40 MG DR TABLET PO SCH (18:50)
[2018-12-26 19:21] VITALS: BP 138/75
[2018-12-26 19:21] LABS: GLUCOMETER DEV NAME(LOC) AHU.; GLUCOSE,POINT OF CARE 300 MG/DL (70-110)
[2018-12-26] MEDS ORDERED: DEXTROSE 50%-WATER 25 GM/50 ML SYRINGE IVP PRN (20:00)
[2018-12-26] MEDS ORDERED: INSULIN LISPRO 100 UNITS/ML SQ PRN (20:00)
[2018-12-26] MEDS: METOPROLOL TARTRATE 50 MG TABLET PO SCH (20:18)
[2018-12-26] MEDS: FINASTERIDE 5 MG TABLET PO SCH (20:19)
[2018-12-26] MEDS: ATORVASTATIN CALCIUM 20 MG TABLET PO SCH (20:19)
[2018-12-26] MEDS: GABAPENTIN 300 MG CAPSULE PO SCH (21:00)
[2018-12-26] MEDS: DOCUSATE SODIUM 250 MG CAPSULE PO SCH (21:00)
[2018-12-26] MEDS ORDERED: ATORVASTATIN CALCIUM 40 MG TABLET PO SCH (21:00)
[2018-12-26 21:20] VITALS: BP 134/77
[2018-12-26 23:25] VITALS: BP 141/63
[2018-12-27 04:10] VITALS: BP 157/76
[2018-12-27] MEDS ORDERED: SODIUM CHLORIDE 0.9% 1,000 ML IV ONE ×2 (05:45→06:19)
[2018-12-27] MEDS: PANTOPRAZOLE SODIUM 40 MG DR TABLET PO SCH (06:30)
[2018-12-27] MEDS ORDERED: PANTOPRAZOLE SODIUM 40 MG DR TABLET PO SCH (06:30)
[2018-12-27] MEDS: INSULIN LISPRO 100 UNITS/ML SQ SCH ×3 (06:30→17:56)
[2018-12-27] MEDS ORDERED: IOHEXOL 240 MG/ML 20 ML VIAL ONE ×2 (06:45)
[2018-12-27] MEDS ORDERED: WATER FOR IRRIGATION,STERILE 6,000 ML IRRIG ONE (06:48)
[2018-12-27 07:49] LABS: CALCIUM, TOTAL 8.3 mg/dL (8.8-10.5); CREATININE 7.92 mg/dL (0.60-1.30); POTASSIUM 4.5 mmol/L (3.5-5.1)
[2018-12-27 07:55] LABS: ALBUMIN 3.1 g/dL (3.4-5.0); BILIRUBIN,TOTAL 0.4 mg/dL (0.1-1.0); TOTAL PROTEIN, SERUM 8.1 g/dL (6.4-8.2)
[2018-12-27 07:58] LABS: GLUCOMETER DEV NAME(LOC) 6N.2; GLUCOSE,POINT OF CARE 177 MG/DL (70-110)
[2018-12-27] MEDS: INSULIN GLARGINE,HUM.REC.ANLOG 100 UNITS/ML SQ SCH (09:00)
[2018-12-27] MEDS ORDERED: HYDROmorphone 2 MG/ML SYRINGE IVP PRN (09:45)
[2018-12-27] MEDS ORDERED: FentaNYL CITRATE-PF 100 MCG/2 ML VIAL IVP PRN (09:45)
[2018-12-27] MEDS: DOCUSATE SODIUM 250 MG CAPSULE PO SCH ×3 (11:07→20:51)
[2018-12-27] MEDS: ISOSORBIDE MONONITRATE 60 MG ER TABLET PO SCH (11:07)
[2018-12-27] MEDS: AmLODIPine BESYLATE 2.5 MG TABLET PO SCH (11:07)
[2018-12-27] MEDS: METOPROLOL TARTRATE 50 MG TABLET PO SCH ×2 (11:07→20:50)
[2018-12-27] MEDS: VITAMIN B COMP/VIT C/FOLIC ACID CAPSULE PO SCH (11:07)
[2018-12-27 11:52] VITALS: BP 147/67
[2018-12-27] MEDS ORDERED: FentaNYL CITRATE-PF 100 MCG/2 ML VIAL IVP ONE (12:00)
[2018-12-27] MEDS ORDERED: 0.9% SODIUM CHLORIDE 10 ML VIAL IVP ONE (12:00)
[2018-12-27] MEDS ORDERED: LIDOCAINE/PF 2% 5 ML VIAL INJ ONE (12:00)
[2018-12-27] MEDS ORDERED: ONDANSETRON HCL 4 MG/2 ML VIAL IVP ONE (12:00)
[2018-12-27] MEDS ORDERED: EPHEDrine SULFATE 50 MG/ML VIAL IM ONE (12:00)
[2018-12-27] MEDS ORDERED: PROPOFOL 1% 20 ML VIAL IVP ONE (12:00)
[2018-12-27 13:41] VITALS: BP 144/82
[2018-12-27 15:42] VITALS: BP 133/65
[2018-12-27 15:57] LABS: GLUCOSE,POINT OF CARE 114 MG/DL (70-110)
[2018-12-27 16:39] LABS: GLUCOMETER DEV NAME(LOC) 6N.2; GLUCOSE,POINT OF CARE 166 MG/DL (70-110)
[2018-12-27 18:20] LABS: BASOPHILS % (AUTO) 1.1 % (0.0-2.0); EOSINOPHILS % (AUTO) 10.9 % (1.0-6.0); HEMATOCRIT 34.9 % (41-53); HEMOGLOBIN 11.8 g/dL (13.5-17.5); LYMPHOCYTES # (AUTO) 1.4 K/uL (1.0-4.8); LYMPHOCYTES % (AUTO) 15.2 % (22.0-44.0); MEAN CORPUSCULAR HEMOGLOBIN 30.8 pg (26.0-34.0); MEAN CORPUSCULAR HGB CONC 33.8 G/dL (31.0-37.0); MEAN CORPUSCULAR VOLUME 91 fL (80-100); MONOCYTES # (AUTO) 1.3 K/uL (0.1-1.0); MONOCYTES % (AUTO) 14.1 % (2.0-9.0); NEUTROPHILS # (AUTO) 5.6 K/uL (1.8-7.7); NEUTROPHILS % (AUTO) 58.7 % (40.0-70.0); PLATELET COUNT (AUTO) 270 K/uL (150-450); RED BLOOD CELL COUNT(AUTO) 3.84 MIL/uL (4.50-5.90); RED CELL DISTRIBUTION WIDTH 15.3 % (11.5-14.5)
[2018-12-27 18:34] LABS: PROTHROMBIN TIME 10.3 SEC (9.4-11.6)
[2018-12-27 18:47] LABS: CHOL/HDL RATIO 4.9 (4.2-7.3); THYROID STIMULATING HORMONE 1.29 uIU/mL (0.36-3.74)
[2018-12-27 19:11] LABS: HEMOGLOBIN A1C 8.9 % (4.5-6.2)
[2018-12-27 20:35] VITALS: BP 133/59
[2018-12-27] MEDS: GABAPENTIN 300 MG CAPSULE PO SCH (20:51)
[2018-12-27] MEDS: HYDROCODONE/ACETAMINOPHEN 5-325 MG TABLET PO PRN (20:51)
[2018-12-27] MEDS: ATORVASTATIN CALCIUM 20 MG TABLET PO SCH (20:51)
[2018-12-27] MEDS: FINASTERIDE 5 MG TABLET PO SCH (20:51)
[2018-12-27] MEDS: OXYGEN THERAPY IH SCH (21:07)
[2018-12-27 21:17] LABS: GLUCOMETER DEV NAME(LOC) 4E.2; GLUCOSE,POINT OF CARE 143 MG/DL (70-110)
[2018-12-27 23:55] VITALS: BP 112/61
[2018-12-28 00:13] LABS: GLUCOMETER DEV NAME(LOC) 6N.2; GLUCOSE,POINT OF CARE 109 MG/DL (70-110)
[2018-12-28 05:05] VITALS: BP 142/75
[2018-12-28] MEDS: PANTOPRAZOLE SODIUM 40 MG DR TABLET PO SCH (06:22)
[2018-12-28] MEDS: INSULIN LISPRO 100 UNITS/ML SQ SCH ×4 (06:30→17:38)
[2018-12-28 07:32] VITALS: BP 151/68
[2018-12-28 08:43] LABS: ALBUMIN 2.8 g/dL (3.4-5.0); BILIRUBIN,TOTAL 0.3 mg/dL (0.1-1.0); CREATININE 5.39 mg/dL (0.60-1.30); POTASSIUM 3.9 mmol/L (3.5-5.1); TOTAL PROTEIN, SERUM 7.4 g/dL (6.4-8.2)
[2018-12-28] MEDS: INSULIN GLARGINE,HUM.REC.ANLOG 100 UNITS/ML SQ SCH ×2 (09:00→13:09)
[2018-12-28 10:52] LABS: GLUCOMETER DEV NAME(LOC) 4E.2; GLUCOSE,POINT OF CARE 80 MG/DL (70-110)
[2018-12-28] MEDS: VITAMIN B COMP/VIT C/FOLIC ACID CAPSULE PO SCH (10:58)
[2018-12-28] MEDS: METOPROLOL TARTRATE 50 MG TABLET PO SCH ×2 (10:58→20:35)
[2018-12-28] MEDS: DOCUSATE SODIUM 250 MG CAPSULE PO SCH ×3 (10:58→21:00)
[2018-12-28] MEDS: AmLODIPine BESYLATE 2.5 MG TABLET PO SCH (10:59)
[2018-12-28] MEDS: ISOSORBIDE MONONITRATE 60 MG ER TABLET PO SCH (10:59)
[2018-12-28 11:18] VITALS: BP 145/68
[2018-12-28 12:51] LABS: GLUCOMETER DEV NAME(LOC) 6N.2; GLUCOSE,POINT OF CARE 95 MG/DL (70-110)
[2018-12-28 12:51] LABS: GLUCOMETER DEV NAME(LOC) 6N.2; GLUCOSE,POINT OF CARE 105 MG/DL (70-110)
[2018-12-28] MEDS: LinaGLIPtin 5 MG TABLET PO SCH (15:16)
[2018-12-28] MEDS: RAMIPRIL 2.5 MG CAPSULE PO SCH (15:16)
[2018-12-28 15:56] VITALS: BP 151/71
[2018-12-28 19:31] VITALS: BP 138/82
[2018-12-28] MEDS: GABAPENTIN 300 MG CAPSULE PO SCH (20:35)
[2018-12-28] MEDS: FINASTERIDE 5 MG TABLET PO SCH (20:35)
[2018-12-28] MEDS: HYDROCODONE/ACETAMINOPHEN 5-325 MG TABLET PO PRN (20:36)
[2018-12-28] MEDS: ATORVASTATIN CALCIUM 40 MG TABLET PO SCH (20:36)
[2018-12-28 21:00] LABS: GLUCOMETER DEV NAME(LOC) 6N.2; GLUCOSE,POINT OF CARE 95 MG/DL (70-110)
[2018-12-28 21:01] LABS: GLUCOMETER DEV NAME(LOC) 6N.2; GLUCOSE,POINT OF CARE 72 MG/DL (70-110)
[2018-12-29] VITALS (7 sets, daily range): BP systolic 107–153; BP diastolic 57–75
[2018-12-29] MEDS: PANTOPRAZOLE SODIUM 40 MG DR TABLET PO SCH (05:41)
[2018-12-29] MEDS: OXYGEN THERAPY IH SCH ×3 (05:42→21:00)
[2018-12-29 06:21] LABS: GLUCOMETER DEV NAME(LOC) 4E.2; GLUCOSE,POINT OF CARE 74 MG/DL (70-110)
[2018-12-29] MEDS: INSULIN REGULAR, HUMAN 100 UNITS/ML SQ PRN ×3 (06:41→21:02)
[2018-12-29] MEDS: AmLODIPine BESYLATE 2.5 MG TABLET PO SCH (08:14)
[2018-12-29] MEDS: LinaGLIPtin 5 MG TABLET PO SCH (08:14)
[2018-12-29] MEDS: ISOSORBIDE MONONITRATE 60 MG ER TABLET PO SCH (08:14)
[2018-12-29] MEDS: METOPROLOL TARTRATE 50 MG TABLET PO SCH ×2 (08:14→20:13)
[2018-12-29] MEDS: RAMIPRIL 2.5 MG CAPSULE PO SCH (08:14)
[2018-12-29] MEDS: VITAMIN B COMP/VIT C/FOLIC ACID CAPSULE PO SCH (08:14)
[2018-12-29] MEDS: DOCUSATE SODIUM 250 MG CAPSULE PO SCH ×3 (08:18→20:53)
[2018-12-29] MEDS: INSULIN GLARGINE,HUM.REC.ANLOG 100 UNITS/ML SQ SCH (09:30)
[2018-12-29 09:45] LABS: GLUCOMETER DEV NAME(LOC) 6N.2; GLUCOSE,POINT OF CARE 201 MG/DL (70-110)
[2018-12-29 11:32] LABS: ALBUMIN 2.9 g/dL (3.4-5.0); BILIRUBIN,TOTAL 0.3 mg/dL (0.1-1.0); CALCIUM, TOTAL 7.9 mg/dL (8.8-10.5); CREATININE 7.2 mg/dL (0.60-1.30); POTASSIUM 4.1 mmol/L (3.5-5.1); TOTAL PROTEIN, SERUM 7.9 g/dL (6.4-8.2)
[2018-12-29] MEDS: INSULIN LISPRO 100 UNITS/ML SQ SCH ×2 (11:56→17:00)
[2018-12-29 13:49] LABS: BASOPHILS % (AUTO) 1.1 % (0.0-2.0); EOSINOPHILS % (AUTO) 13.5 % (1.0-6.0); HEMATOCRIT 35.8 % (41-53); LYMPHOCYTES # (AUTO) 1.4 K/uL (1.0-4.8); LYMPHOCYTES % (AUTO) 16.4 % (22.0-44.0); MEAN CORPUSCULAR HEMOGLOBIN 30.9 pg (26.0-34.0); MEAN CORPUSCULAR HGB CONC 33.6 G/dL (31.0-37.0); MEAN CORPUSCULAR VOLUME 92 fL (80-100); MONOCYTES # (AUTO) 1.1 K/uL (0.1-1.0); NEUTROPHILS # (AUTO) 4.9 K/uL (1.8-7.7); PLATELET COUNT (AUTO) 289 K/uL (150-450); RED BLOOD CELL COUNT(AUTO) 3.89 MIL/uL (4.50-5.90); RED CELL DISTRIBUTION WIDTH 15.6 % (11.5-14.5)
[2018-12-29 16:17] LABS: GLUCOMETER DEV NAME(LOC) 6N.2; GLUCOSE,POINT OF CARE 207 MG/DL (70-110)
[2018-12-29] MEDS: MetroNIDAZOLE 250 MG TABLET PO SCH ×2 (17:36→20:13)
[2018-12-29 17:49] LABS: GLUCOMETER DEV NAME(LOC) 4E.2; GLUCOSE,POINT OF CARE 76 MG/DL (70-110)
[2018-12-29] MEDS: GABAPENTIN 300 MG CAPSULE PO SCH (20:13)
[2018-12-29] MEDS: FINASTERIDE 5 MG TABLET PO SCH (20:13)
[2018-12-29] MEDS: ATORVASTATIN CALCIUM 40 MG TABLET PO SCH (20:13)
[2018-12-29 21:42] LABS: GLUCOMETER DEV NAME(LOC) 4E.2; GLUCOSE,POINT OF CARE 141 MG/DL (70-110)
[2018-12-30 04:45] VITALS: BP 134/59
[2018-12-30 05:44] LABS: BASOPHILS % (AUTO) 1.4 % (0.0-2.0); HEMATOCRIT 37.6 % (41-53); HEMOGLOBIN 12.6 g/dL (13.5-17.5); LYMPHOCYTES % (AUTO) 23.1 % (22.0-44.0); MEAN CORPUSCULAR HEMOGLOBIN 30.5 pg (26.0-34.0); MEAN CORPUSCULAR HGB CONC 33.4 G/dL (31.0-37.0); MEAN CORPUSCULAR VOLUME 92 fL (80-100); MONOCYTES # (AUTO) 1.3 K/uL (0.1-1.0); MONOCYTES % (AUTO) 15.2 % (2.0-9.0); NEUTROPHILS # (AUTO) 3.9 K/uL (1.8-7.7); NEUTROPHILS % (AUTO) 44.3 % (40.0-70.0); PLATELET COUNT (AUTO) 305 K/uL (150-450); RED BLOOD CELL COUNT(AUTO) 4.11 MIL/uL (4.50-5.90); RED CELL DISTRIBUTION WIDTH 15.5 % (11.5-14.5)
[2018-12-30 06:24] LABS: CALCIUM, TOTAL 8.4 mg/dL (8.8-10.5); CREATININE 8.45 mg/dL (0.60-1.30); POTASSIUM 4.2 mmol/L (3.5-5.1)
[2018-12-30 06:38] LABS: MAGNESIUM 1.9 mg/dL (1.80-2.40); PHOSPHORUS 6.8 mg/dL (2.5-4.9)
[2018-12-30] MEDS: PANTOPRAZOLE SODIUM 40 MG DR TABLET PO SCH (07:27)
[2018-12-30] MEDS: INSULIN LISPRO 100 UNITS/ML SQ SCH ×3 (07:30→17:00)
[2018-12-30] MEDS: LinaGLIPtin 5 MG TABLET PO SCH (07:53)
[2018-12-30] MEDS: ISOSORBIDE MONONITRATE 60 MG ER TABLET PO SCH (07:53)
[2018-12-30] MEDS: MetroNIDAZOLE 250 MG TABLET PO SCH ×2 (07:53→15:04)
[2018-12-30] MEDS: VITAMIN B COMP/VIT C/FOLIC ACID CAPSULE PO SCH (07:53)
[2018-12-30] MEDS: METOPROLOL TARTRATE 50 MG TABLET PO SCH (07:53)
[2018-12-30] MEDS: AmLODIPine BESYLATE 2.5 MG TABLET PO SCH (07:53)
[2018-12-30] MEDS: RAMIPRIL 2.5 MG CAPSULE PO SCH (07:54)
[2018-12-30 07:56] VITALS: BP 132/67
[2018-12-30] MEDS: DOCUSATE SODIUM 250 MG CAPSULE PO SCH ×2 (07:58→16:00)
[2018-12-30 08:36] LABS: ALBUMIN 3.3 g/dL (3.4-5.0); BILIRUBIN,TOTAL 0.3 mg/dL (0.1-1.0)
[2018-12-30] MEDS: OXYGEN THERAPY IH SCH (09:17)
[2018-12-30] MEDS: INSULIN GLARGINE,HUM.REC.ANLOG 100 UNITS/ML SQ SCH (09:19)
[2018-12-30 10:44] LABS: GLUCOMETER DEV NAME(LOC) 6N.2; GLUCOSE,POINT OF CARE 120 MG/DL (70-110)
[2018-12-30 11:30] VITALS: BP 129/63
[2018-12-30 15:43] VITALS: BP 137/70
[2018-12-30 16:50] LABS: SODIUM SERUM 124 mmol/L (136-145)
[2018-12-30 17:13] LABS: OSMOLALITY 281 mOS/kg (270-310)
[2018-12-30] MEDS ORDERED: DOCU-342 PO (17:32)
[2018-12-30] MEDS ORDERED: SITA50 PO (17:33)
[2018-12-30 19:50] LABS: GLUCOMETER DEV NAME(LOC) 4E.2; GLUCOSE,POINT OF CARE 206 MG/DL (70-110)
[2018-12-31 05:28] LABS: GLUCOMETER DEV NAME(LOC) 6N.2; GLUCOSE,POINT OF CARE 53 MG/DL (70-110)
[2018-12-31 05:29] LABS: GLUCOMETER DEV NAME(LOC) 6N.2; GLUCOSE,POINT OF CARE 142 MG/DL (70-110)
[2019-01-07 15:07] LABS: STONE COLOR Black; STONE COMMENT Comment:
== END 2018-12-30 18:24 | disposition home or self-care (01) | DRG 659 ==
LOC: EMS 12:02 → 4E 19:30 → UNDOADMIN 19:30 → EMS 21:37 → AHU 22:44 → 4E 12-26 21:20
PROVIDERS: ADMIT Internal Medicine; ATTEND Internal Medicine
PROC: 5A1D70Z Performance of Urinary Filtration, Intermittent, Less than 6 Hours Per Day (ICD-10-PCS; 2018-12-26)
PROC: 0T768DZ Dilation of Right Ureter with Intraluminal Device, Via Natural or Artificial Opening Endoscopic (ICD-10-PCS; 2018-12-27)
PROC: 0TC68ZZ Extirpation of Matter from Right Ureter, Via Natural or Artificial Opening Endoscopic (ICD-10-PCS; 2018-12-27)
PROC: BT1D1ZZ Fluoroscopy of Right Kidney, Ureter and Bladder using Low Osmolar Contrast (ICD-10-PCS; principal; 2018-12-27 07:30)
PROC: 5A1D70Z Performance of Urinary Filtration, Intermittent, Less than 6 Hours Per Day (ICD-10-PCS; 2018-12-28)
DX: N13.9 Obstructive and reflux uropathy, unspecified (principal); N18.6 End stage renal disease; N13.1 Hydronephrosis with ureteral stricture, not elsewhere classified; N17.9 Acute kidney failure, unspecified; I12.0 Hypertensive chronic kidney disease with stage 5 chronic kidney disease or end stage renal disease; E78.5 Hyperlipidemia, unspecified; I49.5 Sick sinus syndrome; E11.22 Type 2 diabetes mellitus with diabetic chronic kidney disease; E78.00 Pure hypercholesterolemia, unspecified; F17.210 Nicotine dependence, cigarettes, uncomplicated; I25.10 Atherosclerotic heart disease of native coronary artery without angina pectoris; I48.91 Unspecified atrial fibrillation; N40.0 Benign prostatic hyperplasia without lower urinary tract symptoms; R31.0 Gross hematuria; Z79.01 Long term (current) use of anticoagulants; Z79.4 Long term (current) use of insulin; Z79.82 Long term (current) use of aspirin; Z79.899 Other long term (current) drug therapy; Z82.49 Family history of ischemic heart disease and other diseases of the circulatory system; Z83.3 Family history of diabetes mellitus; Z90.5 Acquired absence of kidney; Z95.0 Presence of cardiac pacemaker; Z95.1 Presence of aortocoronary bypass graft
CPT/HCPCS: 74176; 80074; 83036; 83735; 83930; 84100; 84295; 84443; 86706; 86708; 87075; 87081; 87086; 88108; 88305; 93005; 97116; 97161; 97165; 97530; 97535; G0378; J1815; J2405; J2704; J3010; J3490; J7030; Q9966